=== PATIENT | male | born 1970 | race African-American/Black ===

== ENCOUNTER 2017-03-24 10:08 | Emergency (ER) | payer OTHER ==
[2017-03-24 10:13] VITALS: BP 122/87; BMI 25.7
--- NOTE | 2017-03-24 10:51 | DR.GENAD ---
HPI - PCP Primary Care Physician: [facility] - HPI Comment HPI Comment: KNEE SWOLLEN. HISTORY GOUT. - Complaint/Symptoms Chief Complaint Doctors Comments: LEFT KNEE PAIN FOR FEW MONTHS WORSE TODAY. NO INJURY REPORTED. Chief Complaint:: PATIENT STATED HE HAS BEEN HAVING LEFT KNEE PAIN FOR THE PAST SIX MONTHS THAT COMES AND GOES BUT TODAY AT WORK IT GOT WORSE. - Nurses notes reviewed Nurses Notes Review: Yes - Source History Provided: Patient - Mode of Arrival Mode of Arrival: Ambulatory - Timing Onset of Chief Complaint: 09/20/16 Came on: Suddenly - Duration Duration: Constant Duration: Hours - Severity Severity: Moderate PMH - PMH Past Medical History: No Past Surgical History: No - Family History History of Family Medical Conditions: No - Social History Does patient currently use any type of tobacco product: Yes Have you used tobacco products in the last 12 months: Yes Type of Tobacco Use: Cigarettes How many years tobacco product used: 20 Does any household member use tobacco: Yes Alcohol Use: None Do you use any recreational Drugs:: No Lives With: Family Lives Where: Home - infectious screening In the last 2 months have you had wt loss of >10#?: NO Have you had fever, night sweats or hemotysis?: No Have you traveled outside the country in the last 6 months?: No Isolation: Standard ROS - Review of Systems Constitutional: No Symptoms Reported Eyes: No Symptoms Reported ENTM: No Symptoms Reported Respiratoy: No Symptoms Reported Cardiovascular: No Symptoms Reported Gastrointestinal/Abdominal: No Symptoms Reported Genitourinary: No Symptoms Reported Neurological: No Symptoms Reported Musculoskeletal: Left, Knee Integumentary: Other (SWELLING LT KNEE.) Hematologic/Lymphatic: No Symptoms Reported Endocrine: No Symptoms Reported All Other Systems: Reviewed and Negative PE - Vital Signs Vitals: Temperature 98.9 F Pulse Rate 105 Respiratory Rate 16 Blood Pressure 122/87 O2 Sat by Pulse Oximetry 98 - General Limitations: No Limitations General Appearance: Alert - Head Head Exam: Normal Inspection - Eyes Eye exam: Normal Appearance - ENT ENT Exam: Normal External Ear Exam Mouth Exam: Normal Inspection Throat Exam: Normal Inspection - Neck Neck Exam: Trachea Midline - Chest Chest Inspection: Symmetric Chest Wall Rise - Respiratory Respiratory Exam: Normal Lung Sounds Bilat Respiratory Exam: Bilateral Clear to Auscultation, Bilateral Wheezing, Bilateral Rhonchi - Back Back Exam: Normal Inspection - Neurologic Neurological Exam: Alert, Oriented X3 - Psychiatric Psychiatric Exam: Normal Affect, Normal Mood - Skin Skin Exam: Erythema MDM - Differential Diagnosis Differential Diagnosis: LEFT KNEE FRACTURE, SPRAIN Course - Treatment Treatment: SEE ORDERS. SUSAN WRAP APPLIED IN ED. - Education/Counseling Education/Counseling: Patient, Education Educated On: Treatment, Diagnosis, Needs for Follow Up ROR - XRAY XRAY Interpreted by: Radiologist XRAY Findings: REPORT DISCUSS WITH PATIENT. - Diagnosis Discharge Problem: Sprain of left knee Qualifiers: Encounter type: initial encounter Involved ligament of knee: unspecified ligament Qualified Code(s): S83.92XA - Sprain of unspecified site of left knee, initial encounter - Discharge Plan Disposition: HOME, SELF-CARE Condition: Stable Prescriptions: Indomethacin 50 mg PO Q8H #30 capsule Mupirocin Calcium Cream [BACTROBAN CREAM 2%] 1 applic EXT BID #30 gm Tramadol HCl 50 mg PO Q8H #15 tablet - Follow ups/Referrals Follow ups/Referrals: NFD,None [Primary Care Provider] - 3 days - Instructions Instructions: Knee Pain, [id number], Rash, [id number] Additional Instructions: RETURN TO ED IF WORSE.
--- NOTE | 2017-03-24 13:05 | RAD ---
HISTORY: Left knee pain with remote injury approximately 4 months ago Study: Three views of the left may Comparison: None Findings: There is suboptimal positioning on the lateral and oblique images which may in part be due to patient discomfort. As visualized no definite evidence of acute displaced fracture or dislocation is identif ied. Mild narrowing of the medial compartment is noted. Periarticular soft tissue swelling and effusi on are noted. If symptoms persist recommend continued follow-up for further evaluation. IMPRESSION: 1. Degenerative changes with periarticular soft tissue swelling and effusion as noted above. Reported By:
== END 2017-03-24 12:21 | disposition home or self-care (01) ==
LOC: ER 10:16
DX: S83.92XA Sprain of unspecified site of left knee, initial encounter (principal); Y33.XXXA Other specified events, undetermined intent, initial encounter; Y92.9 Unspecified place or not applicable
CPT/HCPCS: 29530; 73560; 99281; 99282

== ENCOUNTER 2017-04-29 10:30 | Emergency (ER) | payer OTHER ==
[2017-04-29 10:41] VITALS: BP 163/96; BMI 27.8
[2017-04-29] MEDS ORDERED: TORADOL 60 MG VIAL IM ONE (11:17)
--- NOTE | 2017-04-29 11:17 | DR.GENAD ---
HPI - PCP Primary Care Physician: NFD - Complaint/Symptoms Chief Complaint:: PT C/O LT KNEE AND RT AND LT GREAT TOE. PT STATES HE HAS BEEN DIAGNOSES WITH GOUT. PT STATES HE TOOK HIS LAST DOSE OF INDOCIN2 DAYS AGO. PT STATES HIS PAIN STARTED 2 DAYS AGO. - Source History Provided: Patient - Mode of Arrival Mode of Arrival: Ambulatory - Timing Onset of Chief Complaint: 04/27/17 PMH - PMH Past Medical History: Yes Past Medical History: Arthritis, Dyslipidemia, Gout, Hypertension Past Medical History Comment: SLEEP APNEA Past Surgical History: Yes Past Surgical History Comment: COLONOSCOPY - Family History History of Family Medical Conditions: No - Social History Does patient currently use any type of tobacco product: Yes Have you used tobacco products in the last 12 months: Yes Type of Tobacco Use: Cigarettes Does any household member use tobacco: Yes Alcohol Use: Heavy Do you use any recreational Drugs:: No Lives With: Family Lives Where: Home - infectious screening In the last 2 months have you had wt loss of >10#?: NO Have you had fever, night sweats or hemotysis?: No Have you traveled outside the country in the last 6 months?: No Isolation: Standard ROS - Review of Systems Eyes: No Symptoms Reported ENTM: No Symptoms Reported Respiratoy: No Symptoms Reported Cardiovascular: No Symptoms Reported Gastrointestinal/Abdominal: No Symptoms Reported Genitourinary: No Symptoms Reported Neurological: No Symptoms Reported Musculoskeletal: Knee (left knee pain) Integumentary: No Symptoms Reported Hematologic/Lymphatic: No Symptoms Reported Endocrine: No Symptoms Reported Psychiatric: No Symptoms Reported All Other Systems: Reviewed and Negative PE - Vital Signs Vitals: Temperature 97.9 F Pulse Rate 89 Respiratory Rate 18 Blood Pressure 163/96 O2 Sat by Pulse Oximetry 99 - General General Appearance: Alert, In No Apparent Distress - Head Head Exam: Normal Inspection, Atraumatic - Eyes Eye exam: Normal Appearance, PERRL, EOMI - ENT ENT Exam: Normal Exam External Ear Exam: Normal External Inspection TM/Canal Exam: Bilateral Normal Nose Exam: Normal Nose Exam Mouth Exam: Normal Inspection Throat Exam: Normal Inspection - Neck Neck Exam: Normal Inspection, Full ROM - Chest Chest Inspection: Normal Inspection - Respiratory Respiratory Exam: Normal Lung Sounds Bilat Respiratory Exam: Bilateral Clear to Auscultation - Cardiovascular Cardiovascular Exam: Regular Rate, Normal Rhythm - Abdominal Exam Abdominal Exam: Normal Inspection, Normal Bowel Sounds Abdominal Tenderness: negative: RUQ, RLQ, LUQ, LLQ, Epigastrium, Suprapubic, Diffuse, Mild, Moderate, Severe, Other - Extremities Extremities Exam: Normal Inspection, Full ROM - Back Back Exam: Normal Inspection, Full ROM - Neurologic Neurological Exam: Alert, Oriented X3, CN II-XII Intact - Psychiatric Psychiatric Exam: Normal Affect, Normal Mood - Skin Skin Exam: Warm, Dry, Intact - Diagnosis Discharge Problem: Gout Qualifiers: Gout site: knee Gout etiology: unspecified cause Chronicity: chronic Laterality : left Qualified Code(s): 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
[2017-04-29] MEDS ORDERED: TORADOL 60 MG VIAL ONE (11:22)
== END 2017-04-29 11:30 | disposition home or self-care (01) ==
LOC: ER 10:49
DX: M1A.0620 Idiopathic chronic gout, left knee, without tophus (tophi) (principal)
CPT/HCPCS: 96372; 99282; J1885

== ENCOUNTER 2017-09-18 16:42 | Observation (INO) | payer OTHER ==
[2017-09-18] MEDS ORDERED: NS 1000 ML 1,000 ML ONE (16:52)
[2017-09-18 16:54] VITALS: BMI 25.7
--- NOTE | 2017-09-18 17:07 | DR.EXTPAIN ---
HPI - Time seen Time seen: 17:05 - PCP Primary Care Physician: Dr. Brand at [facility] in [place] - Complaint/Symptoms Chief Complaint:: about an hour ago pt stepped into a mud hole and fell and twisted right knee. Pt was unable to bear weight on right knee at all. Self Treatment fo Chief Complaint: none - Nurses notes reviewed Nurses Notes Review: Yes - Source History Provided: Patient - Mode of arrival Mode of Arrival: Ambulatory - Timing Onset of Chief Complaint: 09/18/17 PMH - PMH Past Medical History: Yes Past Medical History: Dyslipidemia, Hypertension Past Surgical History: No - Family History History of Family Medical Conditions: Yes Family Medical History: Diabetes Mellitus, Hypertension - Social History Does patient currently use any type of tobacco product: Yes Have you used tobacco products in the last 12 months: Yes Type of Tobacco Use: Cigarettes Does any household member use tobacco: No (6 pack beer daily) Alcohol Use: DAILY Do you use any recreational Drugs:: No Lives With: Alone Lives Where: Home - infectious screening In the last 2 months have you had wt loss of >10#?: NO Have you had fever, night sweats or hemotysis?: No Have you traveled outside the country in the last 6 months?: No ROS - Review of Systems Constitutional: No Symptoms Reported Eyes: No Symptoms Reported ENTM: No Symptoms Reported Respiratoy: No Symptoms Reported Cardiovascular: No Symptoms Reported Gastrointestinal/Abdominal: No Symptoms Reported Genitourinary: No Symptoms Reported Neurological: No Symptoms Reported Musculoskeletal: Knee (rt. ) Integumentary: No Symptoms Reported Hematologic/Lymphatic: No Symptoms Reported Endocrine: No Symptoms Reported Psychiatric: No Symptoms Reported All Other Systems: Reviewed and Negative PE - Vital Signs Vitals: Temperature 98.7 F Pulse Rate [Left Radial] 106 Pulse Rate 97 Respiratory Rate 22 Blood Pressure [Left Arm] 126/89 Blood Pressure 63/31 O2 Sat by Pulse Oximetry 100 - General Limitations: No Limitations General Appearance: Alert, In No Apparent Distress - Head Head Exam: Normal Inspection - Eyes Eye exam: Normal Appearance - ENT ENT Exam: Normal Exam - Neck Neck Exam: Normal Inspection - Chest Chest Inspection: Normal Inspection - Respiratory Respiratory Exam: Normal Lung Sounds Bilat - Cardiovascular Cardiovascular Exam: Regular Rate, Normal Rhythm, +S1, +S2 - Abdominal Exam Abdominal Exam: Normal Inspection, Normal Bowel Sounds, Soft - Upper Extremities Shoulder Exam: Normal Inspection Arm Exam: Normal Inspection Elbow Exam: Normal Inspection Hand Exam: Normal Inspection - Lower Extremities Hip/Pelvis Exam: Full ROM Upper Leg Exam: Normal Inspection, Full ROM Knee Exam: Tenderness (rt. knee), Swelling (rt. knee) - Back Back Exam: Normal Inspection - Neurological Neurological Exam: Alert, Oriented X3, CN II-XII Intact - Psychiatric Psychiatric Exam: Normal Affect, Normal Mood - Skin Skin Exam: Warm, Dry, Intact, Normal Color ROR - XRAY XRAY Interpreted by: Self (communited fracture of proximal rt. tibia) - Diagnosis Discharge Problem: Fracture, tibia and fibula, proximal - Discharge Plan Disposition: ADMITTED INPATIENT Condition: Stable - Follow ups/Referrals Follow ups/Referrals: NFD,None [Primary Care Provider] - 3 days - Instructions Instructions: Tibial Fracture, Adult, [id number]
--- NOTE | 2017-09-18 17:23 | RAD ---
Examination: Right knee, three views History: Knee pain Findings: There is an acute, closed, intra-articular and comminuted fracture involving the lateral ti bial plateau with minimal depression and moderate lateral displacement of major fracture fragments. T he distal femur is intact. A fracture of the adjacent fibula is probable. There is a large fluid dist ention of the synovial cavity. Impression: Intra-articular comminuted fracture proximal tibia with associated hemarthrosis. Probable associated proximal fibular fracture. No marked joint space asymmetry is identified. Reported By:
[2017-09-18] MEDS ORDERED: NS 1000 ML 1,000 ML IV ONE (18:57)
[2017-09-18] MEDS ORDERED: DILAUDID INJ IVP PRN (18:58)
[2017-09-18] MEDS ORDERED: ZOFRAN INJ 4 MG VIAL IVP SCH (19:00)
[2017-09-18] MEDS ORDERED: ZOFRAN INJ 4 MG VIAL IVP PRN (19:14)
[2017-09-18 19:48] LABS: BASOPHILS # (AUTO) 0.1 X10^3/uL (0.0-0.1); BASOPHILS % (AUTO) 1.4 % (0.2-1.0); EOSINOPHILS % (AUTO) 0.4 % (0.9-2.9); HEMATOCRIT 36.4 % (42.0-54.0); HEMOGLOBIN 12.5 g/dL (13.5-18.0); LYMPHOCYTES # (AUTO) 0.6 X10^3/uL (1.3-2.9); MEAN CORPUSCULAR HEMOGLOBIN 30.6 pg (27.0-34.0); MEAN CORPUSCULAR HGB CONC 34.2 g/dL (33.0-35.0); MEAN CORPUSCULAR VOLUME 89.4 fL (80.0-100.0); MEAN PLATELET VOLUME 8.2 fL (7.4-11.0); MONOCYTES # (AUTO) 0.3 x10^3/uL (0.3-0.8); NEUTROPHILS # (AUTO) 4.4 x10^3/uL (2.2-4.8); NEUTROPHILS % (AUTO) 81.2 % (42.0-75.0); PLATELET COUNT 116 X10^3/uL (150.0-450.0); RED BLOOD COUNT 4.08 X10^6/uL (4.7-6.0); WHITE BLOOD COUNT 5.5 X10^3/uL (3.6-10.0)
[2017-09-18 19:54] LABS: ALANINE AMINOTRANSFERASE 45 Units/L (12-78); ALBUMIN 3.6 g/dL (3.4-5.0); ALKALINE PHOSPHATASE 74 Units/L (46-116); ASPARTATE AMINO TRANSFERASE 141 Units/L (15-37); BLOOD UREA NITROGEN 5 mg/dL (7-18); CALCIUM 7.6 mg/dL (8.5-10.1); CARBON DIOXIDE 28.5 mmol/L (21-32); CHLORIDE 104 mmol/L (98-107); CREATININE 0.68 mg/dL (0.70-1.30); SODIUM 142 mmol/L (136-145); TOTAL PROTEIN 7.8 g/dL (6.4-8.2); eGFR BLACK RACES > 60 (>60); eGFR NON BLACK RACES > 60 (>60)
[2017-09-18] MEDS: NS 1000 ML 1,000 ML IV SCH (20:05)
[2017-09-18] MEDS: NICOTINE PATCH TD SCH (21:45)
[2017-09-18] MEDS: DILAUDID INJ IVP PRN (23:32)
[2017-09-19] MEDS: NS 1000 ML 1,000 ML IV SCH ×3 (01:58→23:11)
[2017-09-19] MEDS: DILAUDID INJ IVP PRN ×4 (04:00→15:20)
[2017-09-19 06:13] LABS: BASOPHILS % (AUTO) 0.6 % (0.2-1.0); EOSINOPHILS % (AUTO) 0.2 % (0.9-2.9); HEMATOCRIT 33.9 % (42.0-54.0); HEMOGLOBIN 11.4 g/dL (13.5-18.0); LYMPHOCYTES # (AUTO) 0.5 X10^3/uL (1.3-2.9); LYMPHOCYTES % (AUTO) 6.4 % (21.0-51.0); MEAN CORPUSCULAR HEMOGLOBIN 30.2 pg (27.0-34.0); MEAN CORPUSCULAR HGB CONC 33.5 g/dL (33.0-35.0); MEAN CORPUSCULAR VOLUME 90.3 fL (80.0-100.0); MEAN PLATELET VOLUME 8.7 fL (7.4-11.0); MONOCYTES # (AUTO) 0.5 x10^3/uL (0.3-0.8); MONOCYTES % (AUTO) 6.2 % (0.0-13.0); NEUTROPHILS # (AUTO) 6.6 x10^3/uL (2.2-4.8); NEUTROPHILS % (AUTO) 86.6 % (42.0-75.0); PLATELET COUNT 109 X10^3/uL (150.0-450.0); RED BLOOD COUNT 3.76 X10^6/uL (4.7-6.0); RED CELL DISTRIBUTION WIDTH 14.9 % (11.6-16.5); WHITE BLOOD COUNT 7.6 X10^3/uL (3.6-10.0)
[2017-09-19 06:33] LABS: ALANINE AMINOTRANSFERASE 40 Units/L (12-78); ALBUMIN 3.5 g/dL (3.4-5.0); ALKALINE PHOSPHATASE 66 Units/L (46-116); ASPARTATE AMINO TRANSFERASE 91 Units/L (15-37); BLOOD UREA NITROGEN 4 mg/dL (7-18); CALCIUM 7.7 mg/dL (8.5-10.1); CARBON DIOXIDE 26.9 mmol/L (21-32); CHLORIDE 104 mmol/L (98-107); COR NA(FOR HYPERGLY) 144 mmol/L (136-145); CREATININE 0.72 mg/dL (0.70-1.30); SODIUM 143 mmol/L (136-145); TOTAL PROTEIN 7.7 g/dL (6.4-8.2); eGFR BLACK RACES > 60 (>60); eGFR NON BLACK RACES > 60 (>60)
--- NOTE | 2017-09-19 07:27 | RAD ---
HISTORY: Preop ORIF right lower extremity Study: Chest AP portable Comparison: None Findings: The heart is within normal limits in size. The lonnie are normal. The lungs are well inflated and free of acute infiltrates. The bony thorax is unremarkable. IMPRESSION: Lungs clear Reported By:
[2017-09-19] MEDS: NICOTINE PATCH TD SCH (08:00)
[2017-09-19] MEDS ORDERED: LR 1000 ML IV 1,000 ML IV ONE (08:46)
[2017-09-19] MEDS ORDERED: HYDROGEN PEROXIDE 3% ONE (09:32)
[2017-09-19] MEDS ORDERED: MARCAINE 0.25% INJ ONE (09:32)
[2017-09-19] MEDS ORDERED: BACTROBAN OINT ONE (09:32)
[2017-09-19] MEDS ORDERED: DILAUDID INJ ONE (09:49)
[2017-09-19] MEDS ORDERED: FENTANYL INJ 250 mcg ONE (09:49)
[2017-09-19] MEDS ORDERED: ANCEF 1 GM IV PREMIX* 1 GM/50 ML BAG IV ONE (09:53)
[2017-09-19] MEDS ORDERED: NS IRRIGATION 1000 ML 1,000 ML with BACITRACIN VIAL 50,000 UNT IR ONE ×2 (10:29)
[2017-09-19] MEDS ORDERED: PHENERGAN INJ 25 MG IVP PRN (12:53)
[2017-09-19] MEDS ORDERED: ZOFRAN INJ 4 MG VIAL IVP PRN (12:53)
[2017-09-19] MEDS ORDERED: DILAUDID INJ IVP PRN (12:53)
[2017-09-19] MEDS ORDERED: BENADRYL INJ 50 MG VIAL IVP PRN (12:53)
[2017-09-19] MEDS ORDERED: REGLAN INJ 10 MG VIAL IVP PRN (12:53)
[2017-09-19] MEDS ORDERED: ROBINUL ONE (14:53)
[2017-09-19] MEDS ORDERED: VERSED ONE (14:53)
[2017-09-19] MEDS ORDERED: NEOSTIGMINE INJ ONE (14:53)
[2017-09-19] MEDS ORDERED: QUELICIN (OR ANECTINE) ONE (14:53)
[2017-09-19] MEDS ORDERED: DIPRIVAN VIAL ONE (14:53)
[2017-09-19] MEDS ORDERED: TORADOL 30 MG VIAL ONE (14:53)
[2017-09-19] MEDS ORDERED: NORCURON INJ 10 MG VIAL ONE (14:53)
[2017-09-19] MEDS ORDERED: XYLOCAINE 2 % (PLAIN) ONE (14:53)
[2017-09-19] MEDS ORDERED: SUPRANE IN ONE (14:53)
[2017-09-19] MEDS ORDERED: ZOFRAN INJ 4 MG VIAL ONE (14:53)
[2017-09-19] MEDS ORDERED: NORMODYNE INJ 100 MG VIAL ONE (14:53)
--- NOTE | 2017-09-19 14:53 | RAD ---
HISTORY: Postop ORIF right tibia and Study: Two-view right knee Comparison: 09/18/2017. Technique: AP and cross-table lateral views of the right knee are provided. Findings: A laterally placed metallic plate is seen with multiple screws extending into the right proximal tibi a. The depressed fracture of the right lateral tibial plateau has been reduced. The metallic hardware appears intact. A nondisplaced fracture of the right proximal fibula is again seen. There is a small amount pneumo arthrosis present. The distal femur and patella appear intact. A surgical drain is pre sent medially. IMPRESSION: As above. Reported By:
--- NOTE | 2017-09-19 17:45 | DR.H&P ---
H&P - History & Physical for Day of: H&P Date: 09/18/17 - Chief Complaint Chief Complaint: fall, right leg pain - Allergies Allergies/Adverse Reactions: Allergies Allergy/AdvReac Type Severity Reaction Status Date / Time No Known Drug Allergies Allergy Verified 03/24/17 10:09 - History of Present Illness History of Present Illness: 46 BLACK MALE, ER ADMISSION with co fal, about an hour ago pt stepped into a mud hole and fell and twisted right knee. Pt was unable to bear weight on right knee at all. Pt xray revealed right tib/fib fracture. pt has pmh of HTN and daily etoh use. Pt denies taking any prescription medication, [facility] Pt admitted for pain control and ortho consult - Past Medical History Past Medical History: Dyslipidemia, Hypertension - Past Surgical History Surgical History: Other - Family History Family Medical History: Diabetes Mellitus, Hypertension - Social History Does patient currently use any type of tobacco product: Yes Have you used tobacco products in the last 12 months: Yes Type of Tobacco Use: Cigarettes Does any household member use tobacco: No (6 pack beer daily) Alcohol Use: DAILY Drug Use: None - Medications Home Medications: No Known Home Medications 1 : XX PRN PRN 09/18/17 [History Confirmed 09/18/17] - Review of Systems Constitutional: No Symptoms Reported Eyes: No Symptoms Reported ENT: No Symptoms Reported Respiratory: No Symptoms Reported Cardiovascular: No Symptoms Reported Gastrointestinal: No Symptoms Reported Genitourinary: No Symptoms Reported Musculoskeletal: Leg Pain Skin: No Symptoms Reported Neurological: No Symptoms Reported - Physical Exam Vital Signs: Temperature 98.3 F Pulse Rate [Left Brachial] 80 Pulse Rate [Left Radial] 126 Pulse Rate 90 Respiratory Rate 18 Blood Pressure [Left Arm] 142/96 Blood Pressure 113/83 O2 Sat by Pulse Oximetry 93 Oriented: Normal Eyes: Normal Ear: Normal Nose: Normal Throat: Normal Respiratory: RLL Diminished, LLL Diminished Cardiovascular: Normal : Normal Auscultation: Bowel Sounds: Normal Palpation: Normal Tenderness: Normal Skin: Normal Musculoskeletal: Right, Knee, Leg, Ankle, Back:Thoracic, Back:Lumbar, Swelling, Tender, Instability Psychiatric: Normal Speech Pattern: Clear, Appropriate - Assessment/Plan (1) Fracture, tibia and fibula, proximal Status: Acute Plan: ADMIT, ORTHO CONSULT, PAIN CONTROL. BP MONITORING. CXR, EKG PREOPERATIVE (2) Hypertension Status: Acute (3) Sprain of left knee Qualifiers: Encounter type: initial encounter Involved ligament of knee: unspecified ligament Qualified Code(s): S83.92XA - Sprain of unspecified site of left knee , initial encounter Status: Acute
[2017-09-19] MEDS: PERCOCET TAB 5/325 MG PO PRN ×2 (19:03→23:08)
[2017-09-19] MEDS: COLACE CAP 100 MG PO SCH (23:12)
[2017-09-19] MEDS: MILK OF MAGNESIA PO SCH (23:13)
[2017-09-20] MEDS: PERCOCET TAB 5/325 MG PO PRN ×4 (03:11→20:10)
[2017-09-20 06:06] LABS: BASOPHILS # (AUTO) 0.1 X10^3/uL (0.0-0.1); BASOPHILS % (AUTO) 0.9 % (0.2-1.0); EOSINOPHILS % (AUTO) 0.1 % (0.9-2.9); HEMATOCRIT 29.8 % (42.0-54.0); LYMPHOCYTES # (AUTO) 0.5 X10^3/uL (1.3-2.9); LYMPHOCYTES % (AUTO) 7.5 % (21.0-51.0); MEAN CORPUSCULAR HEMOGLOBIN 30.8 pg (27.0-34.0); MEAN CORPUSCULAR HGB CONC 33.7 g/dL (33.0-35.0); MEAN CORPUSCULAR VOLUME 91.5 fL (80.0-100.0); MEAN PLATELET VOLUME 9.5 fL (7.4-11.0); MONOCYTES # (AUTO) 0.5 x10^3/uL (0.3-0.8); MONOCYTES % (AUTO) 7.5 % (0.0-13.0); NEUTROPHILS # (AUTO) 5.1 x10^3/uL (2.2-4.8); PLATELET COUNT 92 X10^3/uL (150.0-450.0); RED BLOOD COUNT 3.26 X10^6/uL (4.7-6.0); RED CELL DISTRIBUTION WIDTH 14.6 % (11.6-16.5); WHITE BLOOD COUNT 6.1 X10^3/uL (3.6-10.0)
[2017-09-20 06:18] LABS: BLOOD UREA NITROGEN 7 mg/dL (7-18); CALCIUM 7.9 mg/dL (8.5-10.1); CARBON DIOXIDE 29.3 mmol/L (21-32); CHLORIDE 104 mmol/L (98-107); CREATININE 0.73 mg/dL (0.70-1.30); SODIUM 141 mmol/L (136-145); eGFR BLACK RACES > 60 (>60); eGFR NON BLACK RACES > 60 (>60)
[2017-09-20] MEDS: NICOTINE PATCH TD SCH ×2 (07:20→11:10)
[2017-09-20] MEDS: MILK OF MAGNESIA PO SCH ×3 (07:20→20:10)
--- NOTE | 2017-09-20 13:43 | PCM.PROG ---
Progress Note - Progress Note for Day of Date: 09/19/17 - Subjective Subjective: 46 bm admitted with right lower extremity tib/fib fracture. pt NPO for surgical repair in OR this AM, pt co rle pain - Past Medical Family Social History Past Med/Fam/Surg Hx: No changes since H&P Allergies: Allergies No Known Drug Allergies Allergy (Verified 03/24/17 10:09) - Review of Systems ROS: No change since H&P - Vital Signs and I&O's Vital Signs: Temperature 101.4 F Pulse Rate [Left Brachial] 116 Pulse Rate [Left Radial] 126 Pulse Rate 90 Respiratory Rate 20 Blood Pressure [Left Arm] 144/94 Blood Pressure 113/83 O2 Sat by Pulse Oximetry 96 Intake and Output: Intake & Output 09/18/17 09/19/17 09/20/17 09/21/17 11:59 11:59 11:59 11:59 Intake Total 1440 3048 Output Total 1200 2380 Balance 240 668 - Physical Exam Oriented: Normal Eyes: Normal Ear: Normal Nose: Normal Throat: Normal Respiratory: Normal Cardiovascular: Normal : Normal Auscultation: Bowel Sounds: Normal Tenderness: Normal Skin: Normal Musculoskeletal: Right, Knee, Leg, Ankle, Back:Thoracic, Back:Lumbar, Swelling, Tender, Instability Psychiatric: Normal Mood Description: Calm Speech Pattern: Clear, Appropriate - Laboratory and Diagnostics Result Diagrams: 09/20/17 04:10 09/20/17 04:10 Labs: Laboratory WBC 6.1 X10^3/uL (3.6-10.0) 09/20/17 04:10 RBC 3.26 X10^6/uL (4.7-6.0) L 09/20/17 04:10 Hgb 10.0 g/dL (13.5-18.0) L 09/20/17 04:10 Hct 29.8 % (42.0-54.0) L 09/20/17 04:10 MCV 91.5 fL (80.0-100.0) 09/20/17 04:10 MCH 30.8 pg (27.0-34.0) 09/20/17 04:10 MCHC 33.7 g/dL (33.0-35.0) 09/20/17 04:10 RDW 14.6 % (11.6-16.5) 09/20/17 04:10 Plt Count 92 X10^3/uL (150.0-450.0) L 09/20/17 04:10 MPV 9.5 fL (7.4-11.0) 09/20/17 04:10 Neut % (Auto) 84.0 % (42.0-75.0) H 09/20/17 04:10 Lymph % (Auto) 7.5 % (21.0-51.0) L 09/20/17 04:10 [place] % (Auto) 7.5 % (0.0-13.0) 09/20/17 04:10 Eos % (Auto) 0.1 % (0.9-2.9) L 09/20/17 04:10 Baso % (Auto) 0.9 % (0.2-1.0) 09/20/17 04:10 Neut # (Auto) 5.1 x10^3/uL (2.2-4.8) H 09/20/17 04:10 Lymph # (Auto) 0.5 X10^3/uL (1.3-2.9) L 09/20/17 04:10 [place] # (Auto) 0.5 x10^3/uL (0.3-0.8) 09/20/17 04:10 Eos # (Auto) 0.0 x10^3/uL (0.0-0.2) 09/20/17 04:10 Baso # (Auto) 0.1 X10^3/uL (0.0-0.1) 09/20/17 04:10 Absolute Nucleated RBC 0.1 /100WBC 09/20/17 04:10 Sodium 141 mmol/L (136-145) 09/20/17 04:10 Corrected Sodium TNP 09/20/17 04:10 Potassium 3.5 mmol/L (3.5-5.1) 09/20/17 04:10 Chloride 104 mmol/L (98-107) 09/20/17 04:10 Carbon Dioxide 29.3 mmol/L (21-32) 09/20/17 04:10 BUN 7 mg/dL (7-18) 09/20/17 04:10 Creatinine 0.73 mg/dL (0.70-1.30) 09/20/17 04:10 Est GFR (MDRD) Af Amer > 60 (>60) 09/20/17 04:10 Est GFR (MDRD) Non-Af > 60 (>60) 09/20/17 04:10 Glucose 97 mg/dL (65-99) 09/20/17 04:10 Calcium 7.9 mg/dL (8.5-10.1) L 09/20/17 04:10 Corrected Calcium TNP 09/19/17 04:28 Total Bilirubin 1.00 mg/dL (0.2-1.0) 09/19/17 04:28 AST 91 Units/L (15-37) H 09/19/17 04:28 ALT 40 Units/L (12-78) 09/19/17 04:28 Alkaline Phosphatase 66 Units/L (46-116) 09/19/17 04:28 Total Protein 7.7 g/dL (6.4-8.2) 09/19/17 04:28 Albumin 3.5 g/dL (3.4-5.0) 09/19/17 04:28 Globulin 4.2 g/dL (2.5-4.5) 09/19/17 04:28 Albumin/Globulin Ratio 0.8 Ratio (1.1-2.1) L 09/19/17 04:28 - Plan (1) Fracture, tibia and fibula, proximal Status: Acute Plan: ORTHO CONSULT, PAIN CONTROL. BP MONITORING, NPO FOR ORTHO SURGERY THIS AM. CXR, EKG PREOPERATIVE (2) Hypertension Status: Acute (3) Sprain of left knee Status: Acute Qualifiers: Encounter type: initial encounter Involved ligament of knee: unspecified ligament Qualified Code(s): S83.92XA - Sprain of unspecified site of left knee , initial encounter
--- NOTE | 2017-09-20 13:49 | PCM.PROG ---
Progress Note - Progress Note for Day of Date: 09/20/17 - Subjective Subjective: 46 bm admitted with right lower extremity tib/fib fracture. Pt is one day s/p RLE FRACTURE REPAIR PER DR EDWARDS. PT HAS DRAIN INTACT. PT CO RLE "BURNING" PT HAS NOT BEEN UP WITH PHYSICAL THERAPY. - Past Medical Family Social History Past Med/Fam/Surg Hx: No changes since H&P Allergies: Allergies No Known Drug Allergies Allergy (Verified 03/24/17 10:09) - Review of Systems ROS: No change since H&P - Vital Signs and I&O's Vital Signs: Temperature 101.4 F Pulse Rate [Left Brachial] 116 Pulse Rate [Left Radial] 126 Pulse Rate 90 Respiratory Rate 20 Blood Pressure [Left Arm] 144/94 Blood Pressure 113/83 O2 Sat by Pulse Oximetry 96 Intake and Output: Intake & Output 09/18/17 09/19/17 09/20/17 09/21/17 11:59 11:59 11:59 11:59 Intake Total 1440 3048 Output Total 1200 2380 Balance 240 668 - Physical Exam Oriented: Normal Eyes: Normal Ear: Normal Nose: Normal Throat: Normal Respiratory: Normal Cardiovascular: Normal : Normal Auscultation: Bowel Sounds: Normal Tenderness: Normal Skin: Normal Musculoskeletal: Right, Knee, Leg, Ankle, Back:Thoracic, Back:Lumbar, Swelling, Tender, Instability Psychiatric: Normal Mood Description: Calm Speech Pattern: Clear, Appropriate - Laboratory and Diagnostics Result Diagrams: 09/20/17 04:10 09/20/17 04:10 Labs: Laboratory WBC 6.1 X10^3/uL (3.6-10.0) 09/20/17 04:10 RBC 3.26 X10^6/uL (4.7-6.0) L 09/20/17 04:10 Hgb 10.0 g/dL (13.5-18.0) L 09/20/17 04:10 Hct 29.8 % (42.0-54.0) L 09/20/17 04:10 MCV 91.5 fL (80.0-100.0) 09/20/17 04:10 MCH 30.8 pg (27.0-34.0) 09/20/17 04:10 MCHC 33.7 g/dL (33.0-35.0) 09/20/17 04:10 RDW 14.6 % (11.6-16.5) 09/20/17 04:10 Plt Count 92 X10^3/uL (150.0-450.0) L 09/20/17 04:10 MPV 9.5 fL (7.4-11.0) 09/20/17 04:10 Neut % (Auto) 84.0 % (42.0-75.0) H 09/20/17 04:10 Lymph % (Auto) 7.5 % (21.0-51.0) L 09/20/17 04:10 [place] % (Auto) 7.5 % (0.0-13.0) 09/20/17 04:10 Eos % (Auto) 0.1 % (0.9-2.9) L 09/20/17 04:10 Baso % (Auto) 0.9 % (0.2-1.0) 09/20/17 04:10 Neut # (Auto) 5.1 x10^3/uL (2.2-4.8) H 09/20/17 04:10 Lymph # (Auto) 0.5 X10^3/uL (1.3-2.9) L 09/20/17 04:10 [place] # (Auto) 0.5 x10^3/uL (0.3-0.8) 09/20/17 04:10 Eos # (Auto) 0.0 x10^3/uL (0.0-0.2) 09/20/17 04:10 Baso # (Auto) 0.1 X10^3/uL (0.0-0.1) 09/20/17 04:10 Absolute Nucleated RBC 0.1 /100WBC 09/20/17 04:10 Sodium 141 mmol/L (136-145) 09/20/17 04:10 Corrected Sodium TNP 09/20/17 04:10 Potassium 3.5 mmol/L (3.5-5.1) 09/20/17 04:10 Chloride 104 mmol/L (98-107) 09/20/17 04:10 Carbon Dioxide 29.3 mmol/L (21-32) 09/20/17 04:10 BUN 7 mg/dL (7-18) 09/20/17 04:10 Creatinine 0.73 mg/dL (0.70-1.30) 09/20/17 04:10 Est GFR (MDRD) Af Amer > 60 (>60) 09/20/17 04:10 Est GFR (MDRD) Non-Af > 60 (>60) 09/20/17 04:10 Glucose 97 mg/dL (65-99) 09/20/17 04:10 Calcium 7.9 mg/dL (8.5-10.1) L 09/20/17 04:10 Corrected Calcium TNP 09/19/17 04:28 Total Bilirubin 1.00 mg/dL (0.2-1.0) 09/19/17 04:28 AST 91 Units/L (15-37) H 09/19/17 04:28 ALT 40 Units/L (12-78) 09/19/17 04:28 Alkaline Phosphatase 66 Units/L (46-116) 09/19/17 04:28 Total Protein 7.7 g/dL (6.4-8.2) 09/19/17 04:28 Albumin 3.5 g/dL (3.4-5.0) 09/19/17 04:28 Globulin 4.2 g/dL (2.5-4.5) 09/19/17 04:28 Albumin/Globulin Ratio 0.8 Ratio (1.1-2.1) L 09/19/17 04:28 - Plan (1) Fracture, tibia and fibula, proximal Status: Acute Plan: ORTHO CONSULT, PAIN CONTROL. BP MONITORING, FOLLOWING POST OPERATIVE PAIN AND PT PER DR EDWARDS (2) Hypertension Status: Acute (3) Sprain of left knee Status: Acute Qualifiers: Encounter type: initial encounter Involved ligament of knee: unspecified ligament Qualified Code(s): S83.92XA - Sprain of unspecified site of left knee , initial encounter
[2017-09-20] MEDS: TYLENOL 325 MG TAB PO PRN (17:14)
[2017-09-20] MEDS: NS 1000 ML 1,000 ML IV SCH (19:47)
[2017-09-20] MEDS: COLACE CAP 100 MG PO SCH (20:10)
[2017-09-20] MEDS ORDERED: AMBIEN PO PRN (20:11)
[2017-09-21] MEDS: PERCOCET TAB 5/325 MG PO PRN (01:31)
[2017-09-21] MEDS: TYLENOL 325 MG TAB PO PRN (01:31)
[2017-09-21 06:05] LABS: BASOPHILS % (AUTO) 0.7 % (0.2-1.0); EOSINOPHILS % (AUTO) 0.5 % (0.9-2.9); HEMATOCRIT 26.8 % (42.0-54.0); HEMOGLOBIN 9.1 g/dL (13.5-18.0); LYMPHOCYTES # (AUTO) 0.7 X10^3/uL (1.3-2.9); LYMPHOCYTES % (AUTO) 10.2 % (21.0-51.0); MEAN CORPUSCULAR HEMOGLOBIN 30.9 pg (27.0-34.0); MEAN CORPUSCULAR HGB CONC 33.8 g/dL (33.0-35.0); MEAN CORPUSCULAR VOLUME 91.4 fL (80.0-100.0); MEAN PLATELET VOLUME 9.2 fL (7.4-11.0); MONOCYTES # (AUTO) 0.6 x10^3/uL (0.3-0.8); MONOCYTES % (AUTO) 8.6 % (0.0-13.0); NEUTROPHILS # (AUTO) 5.5 x10^3/uL (2.2-4.8); PLATELET COUNT 106 X10^3/uL (150.0-450.0); RED BLOOD COUNT 2.93 X10^6/uL (4.7-6.0); RED CELL DISTRIBUTION WIDTH 13.8 % (11.6-16.5); WHITE BLOOD COUNT 6.9 X10^3/uL (3.6-10.0)
[2017-09-21] MEDS: NS 1000 ML 1,000 ML IV SCH (06:14)
[2017-09-21 06:35] LABS: BLOOD UREA NITROGEN 5 mg/dL (7-18); CALCIUM 7.9 mg/dL (8.5-10.1); CARBON DIOXIDE 30.3 mmol/L (21-32); CHLORIDE 100 mmol/L (98-107); CREATININE 0.81 mg/dL (0.70-1.30); SODIUM 139 mmol/L (136-145); eGFR BLACK RACES > 60 (>60); eGFR NON BLACK RACES > 60 (>60)
[2017-09-21] MEDS ORDERED: K-LYTE EFFERVESCENT PO PRN (06:39)
[2017-09-21] MEDS ORDERED: MAGNESIUM SULFATE 1 GM/100 mL PREMIX 1 GM/100 ML BAG IV PRN (06:39)
[2017-09-21] MEDS ORDERED: POTASSIUM CHL 40 MEQ/NS 0.45% 500 ML IV PRN (06:39)
[2017-09-21] MEDS ORDERED: K-RIDER 10 MEQ/NS 100 ML 10 MEQ/100 ML BAG IV PRN (06:39)
[2017-09-21] MEDS ORDERED: POTASSIUM CHLORIDE LIQ 20 MEQ UDC PO PRN (06:39)
[2017-09-21] MEDS ORDERED: POTASSIUM CHL 60 MEQ/NS 0.45% 500 ML IV PRN (06:39)
[2017-09-21] MEDS: MILK OF MAGNESIA PO SCH (08:38)
[2017-09-21] MEDS: NICOTINE PATCH TD SCH (08:38)
[2017-09-21] MEDS ORDERED: LEVAQUIN PREMIX IV 750 MG 750 MG/150 ML BAG IV SCH (10:00)
--- NOTE | 2017-09-21 10:23 | RAD ---
Examination: Chest x-ray. Clinical history: Postop fever. Technique: A single portable AP view of the chest was obtained. Comparison: 09/19/2017. Findings: The chest is mildly rotated. The cardiac and mediastinal contours are within normal limits. No pneumothorax or pleural effusion is noted. The lungs are clear. Degenerative changes are noted in the spine. No acute osseous abnormality is noted. Impression: 1. No acute disease. Reported By:
[2017-09-21 12:06] VITALS: BP 147/90
[2017-09-21 12:22] LABS: BILIRUBIN,URINE NEGATIVE (NEGATIVE); BLOOD/HEMOGLOBIN,URINE NEGATIVE (NEGATIVE); GLUCOSE, URINE NEGATIVE (NEGATIVE); KETONES,URINE NEGATIVE (NEGATIVE); LEUKOCYTE ESTERASE ,URINE NEGATIVE (NEGATIVE); NITRITES,URINE NEGATIVE (NEGATIVE); PROTEIN,URINE 1+ (NEGATIVE); UROBILINOGEN,URINE 2+ (NORMAL)
[2017-09-21 12:34] LABS: APPEARANCE,URINE CLEAR (CLEAR); COLOR,URINE YELLOW (YELLOW)
[2017-09-21 12:36] LABS: BACTERIA,URINE NEGATIVE /HPF (NEGATIVE); RBC,URINE NONE SEEN /HPF (NONE SEEN); SQUAMOUS EPITHELIAL CELL,UR RARE /HPF (NEGATIVE)
--- NOTE | 2017-09-21 13:33 | PCM.PROG ---
Progress Note - Progress Note for Day of Date: 09/21/17 - Subjective Subjective: 46 bm admitted with right lower extremity tib/fib fracture. Pt is one day s/p RLE FRACTURE REPAIR PER DR EDWARDS. PT HAD DRAINAGE TUBE REMOVED YESTERDAY AFTERNOON. PT SPIKED FEVER YESTERDAY, BLOOD CULTURES ORDERED. PT CONTINUES TO CO RLE PAIN THIS AM. DENIES ANY SOB OR N/V. UA, CXR AND IV LEVAQUIN ADDED THIS AM. WILL CONTINUE PAIN CONTROL AND PT PER ORTHO - Past Medical Family Social History Past Med/Fam/Surg Hx: No changes since H&P Allergies: Allergies No Known Drug Allergies Allergy (Verified 03/24/17 10:09) - Review of Systems ROS: No change since H&P - Vital Signs and I&O's Vital Signs: Temperature 100.4 F Pulse Rate [Right Brachial] 119 Pulse Rate [Left Brachial] 119 Pulse Rate [Left Radial] 126 Pulse Rate 90 Respiratory Rate 20 Blood Pressure [Right Arm] 133/89 Blood Pressure [Left Arm] 147/90 Blood Pressure 113/83 O2 Sat by Pulse Oximetry 98 Intake and Output: Intake & Output 09/19/17 09/20/17 09/21/17 09/22/17 11:59 11:59 11:59 11:59 Intake Total 1440 3048 3336 Output Total 1200 2380 2375 Balance 240 668 961 - Physical Exam Oriented: Normal Eyes: Normal Ear: Normal Nose: Normal Throat: Normal Respiratory: Diminished (MILD DIMINISHED LUNG BASES) Cardiovascular: Normal : Normal Auscultation: Bowel Sounds: Normal Tenderness: Normal Skin: Normal Musculoskeletal: Right, Knee, Leg, Ankle, Back:Thoracic, Back:Lumbar, Swelling, Tender, Instability Psychiatric: Normal Mood Description: Calm Speech Pattern: Clear, Appropriate - Laboratory and Diagnostics Result Diagrams: 09/21/17 04:15 09/21/17 04:15 Labs: Laboratory WBC 6.9 X10^3/uL (3.6-10.0) 09/21/17 04:15 RBC 2.93 X10^6/uL (4.7-6.0) L 09/21/17 04:15 Hgb 9.1 g/dL (13.5-18.0) L 09/21/17 04:15 Hct 26.8 % (42.0-54.0) L 09/21/17 04:15 MCV 91.4 fL (80.0-100.0) 09/21/17 04:15 MCH 30.9 pg (27.0-34.0) 09/21/17 04:15 MCHC 33.8 g/dL (33.0-35.0) 09/21/17 04:15 RDW 13.8 % (11.6-16.5) 09/21/17 04:15 Plt Count 106 X10^3/uL (150.0-450.0) L 09/21/17 04:15 MPV 9.2 fL (7.4-11.0) 09/21/17 04:15 Neut % (Auto) 80.0 % (42.0-75.0) H 09/21/17 04:15 Lymph % (Auto) 10.2 % (21.0-51.0) L 09/21/17 04:15 [place] % (Auto) 8.6 % (0.0-13.0) 09/21/17 04:15 Eos % (Auto) 0.5 % (0.9-2.9) L 09/21/17 04:15 Baso % (Auto) 0.7 % (0.2-1.0) 09/21/17 04:15 Neut # (Auto) 5.5 x10^3/uL (2.2-4.8) H 09/21/17 04:15 Lymph # (Auto) 0.7 X10^3/uL (1.3-2.9) L 09/21/17 04:15 [place] # (Auto) 0.6 x10^3/uL (0.3-0.8) 09/21/17 04:15 Eos # (Auto) 0.0 x10^3/uL (0.0-0.2) 09/21/17 04:15 Baso # (Auto) 0.0 X10^3/uL (0.0-0.1) 09/21/17 04:15 Absolute Nucleated RBC 0.0 /100WBC 09/21/17 04:15 Sodium 139 mmol/L (136-145) 09/21/17 04:15 Corrected Sodium TNP 09/21/17 04:15 Potassium 3.0 mmol/L (3.5-5.1) L* 09/21/17 04:15 Chloride 100 mmol/L (98-107) 09/21/17 04:15 Carbon Dioxide 30.3 mmol/L (21-32) 09/21/17 04:15 BUN 5 mg/dL (7-18) L 09/21/17 04:15 Creatinine 0.81 mg/dL (0.70-1.30) 09/21/17 04:15 Est GFR (MDRD) Af Amer > 60 (>60) 09/21/17 04:15 Est GFR (MDRD) Non-Af > 60 (>60) 09/21/17 04:15 Glucose 90 mg/dL (65-99) 09/21/17 04:15 Calcium 7.9 mg/dL (8.5-10.1) L 09/21/17 04:15 Corrected Calcium TNP 09/19/17 04:28 Magnesium 1.4 mg/dL (1.7-2.9) L 09/21/17 04:15 Total Bilirubin 1.00 mg/dL (0.2-1.0) 09/19/17 04:28 AST 91 Units/L (15-37) H 09/19/17 04:28 ALT 40 Units/L (12-78) 09/19/17 04:28 Alkaline Phosphatase 66 Units/L (46-116) 09/19/17 04:28 Total Protein 7.7 g/dL (6.4-8.2) 09/19/17 04:28 Albumin 3.5 g/dL (3.4-5.0) 09/19/17 04:28 Globulin 4.2 g/dL (2.5-4.5) 09/19/17 04:28 Albumin/Globulin Ratio 0.8 Ratio (1.1-2.1) L 09/19/17 04:28 Specimen Type Clean catch urine 09/21/17 12:06 Urine Color Yellow (YELLOW) 09/21/17 12:06 Urine Appearance Clear (CLEAR) 09/21/17 12:06 Urine pH 8.0 (5.0 - 8.0) 09/21/17 12:06 Ur Specific Carbon 1.010 (1.000-1.030) 09/21/17 12:06 Urine Protein 1+ (NEGATIVE) 09/21/17 12:06 Urine Glucose (UA) Negative (NEGATIVE) 09/21/17 12:06 Urine Ketones Negative (NEGATIVE) 09/21/17 12:06 Urine Occult Blood Negative (NEGATIVE) 09/21/17 12:06 Urine Nitrite Negative (NEGATIVE) 09/21/17 12:06 Urine Bilirubin Negative (NEGATIVE) 09/21/17 12:06 Urine Urobilinogen 2+ (NORMAL) 09/21/17 12:06 Ur Leukocyte Esterase Negative (NEGATIVE) 09/21/17 12:06 Urine RBC None seen /HPF (NONE SEEN) 09/21/17 12:06 Urine WBC 0-2 /HPF (NONE SEEN) 09/21/17 12:06 Ur Squamous Epith Cells Rare /HPF (NEGATIVE) 09/21/17 12:06 Urine Bacteria Negative /HPF (NEGATIVE) 09/21/17 12:06 Ur Culture Indicated? No/not indicated 09/21/17 12:06 - Plan (1) Fracture, tibia and fibula, proximal Status: Acute Plan: ORTHO CONSULT, PAIN CONTROL. BP MONITORING, FOLLOWING POST OPERATIVE PAIN AND PT PER DR EDWARDS (2) Hypertension Status: Acute (3) Sprain of left knee Status: Acute Qualifiers: Encounter type: initial encounter Involved ligament of knee: unspecified ligament Qualified Code(s): S83.92XA - Sprain of unspecified site of left knee , initial encounter (4) Postoperative fever Status: Acute Plan: BLOOD CULTURES. UA, CXR, IV LEVAQUIN, REPEAT AM LABS. FEVER CONTROL, ENCOURAGE ORAL HYDRATION. PULMONARY TOILETING
--- NOTE | 2017-09-22 15:24 | OR.GENERIC ---
Post-Op Note Generic - Post-Op Note Operative Report: PREOPERATIVE DIAGNOSIS-right TIBIAL PLATEAU FRACTURE, LATERAL CONDYLE SPLIT DEPRESSION, CLOSED pOSTOPERATIVE DIAGNOSIS-Right TIBIAL PLATEAU FRACTURE, LATERAL CONDYLE SPLIT DEPRESSION, CLOSED, UNSTABLE, OSTEOPOROTIC pROCEDURE-right TIBIA OPEN REDUCTION INTERNAL FIXATION OF THE TIBIAL PLATEAU WITH PLATES AND SCREWS. DATE OF SURGERY- 09/19/2017 [facility] USED-SONAM,, 4 holed lateral condyle plate. HYDROCET indication-patient is a 46-year-old male who had a fall into a ditch and injury to his RIGHT knee. patient was unable to get up and walk on the RIGHT lower limb. He was seen in the emergency room. x-rays and computed tomography scan confirmed that it is a split depression fracture involving the lateral tibial condyle plateau of the RIGHT knee. Natural history and treatment discussions were done. Patient opted for surgery. He was taken through the procedure in detail. Pre-and post surgery instructions were given to him. Complications including but not limited to infection, neurovascular damage, foot drop, nonunion, malunion, symptomatic implant, compartment syndrome, knee arthritis and stiffness, need for further procedures in the future, need for implant removal where it feels the complications the complications which were discussed with him. He understood and verbalized to same. Preoperative-patient was seen in the preoperative holding area. The family, his girlfriend was updated about the procedure is going to get. Limb was marked. Consent was revisited. He was met with the esthetics instructor and he got a regional block. He got the appropriate antibiotic. Procedure-patient was brought to the operating room. Patient was placed supine on the operating table. A bump was placed under his RIGHT hip to internally rotate the lower limb.patient was placed under general anesthesia and successful endotracheal intubation was completed. Tourniquet was applied on the RIGHT lower limp but was not inflated. RIGHT limb was prepped and draped. Tourniquet was inflated. Proposed incision was marked. An hockey-stick incision parallel to the joint line and about 2 cm lateral to the tibial crest was marked. Incision deepened to expose the deep muscle layer.the deep fascia was incisedanterior to the tensor fascia meek.the proximal attachment was tibialis anterior was taken down from the tibia with the BOVIE. Care was taken to not extend the dissection posteriorly in order to avoid important structures. The proposed joint capsulotomy was marked with the help of a K wire which was confirmed with a C-arm. Sub-meniscal arthrotomy was completed on the lateral side. The sutures using Ethibond suture were passed through the meniscal root. The fracture site was exposed. Multiple fracture lines were seen extending and coronal planes. A reduction was achieved manually by giving traction and varus stress. Also direct manipulation of the fragments with a bone buggy driver as well as periosteal elevator was done to reduce the fracture fragments. These were held in place with a pointed reduction clamp. There was an articular depression noted in the anterior part of the fracture fragment. Through the fracture site and the articular fragment was elevated using a bone tamp. Direct visualization as well as C-arm images were obtained to confirm articular congruity. Multiple K wires were placed in the subchondral region across the fracture site holding the reduction in place. The void LEFT after the elevation of the depressed fragment was filled with HYDROCET. A 4-hole plate was chosen and was placed on the lateral condyle as wl as the lateral surface of the proximal tibia. It was provisionally fixed both proximally and distally with K wires. The placement was very satisfactory. This was confirmed with multiple images with the C-arm. 2 screws proximally and distally were fixed with locking mode. Multiple images throughout the procedure were obtained with C-arm to confirm appropriate placement of the screws. A deep drain was placed. the sutures were passed through the plate to anchor the meniscal root. Capsulotomy was closed after thorough irrigation. Joint was again visualized and no loose bodies were found. The IT band was closed. The remaining soft tissues closed with Vicryl 20. Skin was closed with declan. The fascia was not closed to prevent compartment syndrome. Sterile dressing was applied. He was placed in a knee immobilizer. postoperative-patient was woken up from the surgery. Patient was successfully extubated. Patient was stable, afebrile and he was shifted to the PACU. Postoperative neurovascular examination is intact. Postoperative x-rays shows appropriate placement of the plate, well reduced and well aligned knee joint and fracture. The family was updated. We will have him admitted for pain management as well as keeping an eye on his compartment syndrome.
== END 2017-09-21 12:50 | disposition home or self-care (01) ==
LOC: ER 16:59 → MED/SURG 19:06
PROVIDERS: ADMIT Internal Medicine; ATTEND Internal Medicine
PROC: 0QSG04Z Reposition Right Tibia with Internal Fixation Device, Open Approach (ICD-10-PCS; principal; 2017-09-19 10:00)
DX: S82.121A Displaced fracture of lateral condyle of right tibia, initial encounter for closed fracture (principal); S83.92XA Sprain of unspecified site of left knee, initial encounter; W18.39XA Other fall on same level, initial encounter; Y92.89 Other specified places as the place of occurrence of the external cause; R50.82 Postprocedural fever; E78.2 Mixed hyperlipidemia; I10 Essential (primary) hypertension; R26.89 Other abnormalities of gait and mobility
CPT/HCPCS: 36415; 71045; 73560; 73564; 76000; 80048; 80053; 81001; 83735; 85025; 87040; 93005; 93010; 94762; 96365; 96374; 96375; 99218; 99283; 99284; A4216; A4222; S0020; G0378; J0330; J0690; J1170; J1885; J1956; J2001; J2250; J2405; J2710; J3010; J3490; J7120

== ENCOUNTER 2017-09-26 07:21 | Emergency (ER) | payer OTHER ==
[2017-09-26 07:28] VITALS: BP 140/85; BMI 26.4
--- NOTE | 2017-09-26 08:17 | DR.EXTPAIN ---
HPI - Time seen Time seen: 08:05 - PCP Primary Care Physician: dr olivas - Complaint/Symptoms Chief Complaint Doctor Comments: Patient admits to having surgeryof the right knee on Tuesday of last week and dressing change on Tuesday 3 days ago;today noticed bleeding at the site. He denies fever or erythema. Chief Complaint:: pt stated he had right knee surgery last tuesday. the dressing was changed tuesday in dr francis office and yesterday he noticed some bleeding. - Source History Provided: Patient - Mode of arrival Mode of Arrival: Wheelchair - Timing Onset of Chief Complaint: 09/25/17 PMH - PMH Past Medical History: Yes Past Medical History: Dyslipidemia, Hypertension Past Surgical History: Yes Surgical History: Ortho Surgery - Family History History of Family Medical Conditions: Yes Family Medical History: Diabetes Mellitus, Hypertension - Social History Does patient currently use any type of tobacco product: Yes Have you used tobacco products in the last 12 months: Yes Type of Tobacco Use: Cigarettes How many years tobacco product used: 15 Does any household member use tobacco: Yes Alcohol Use: Occasionally Do you use any recreational Drugs:: No Lives With: Family Lives Where: Home - infectious screening In the last 2 months have you had wt loss of >10#?: NO Have you had fever, night sweats or hemotysis?: No Have you traveled outside the country in the last 6 months?: No Isolation: Standard ROS - Review of Systems Eyes: No Symptoms Reported ENTM: No Symptoms Reported Respiratoy: No Symptoms Reported Cardiovascular: No Symptoms Reported Gastrointestinal/Abdominal: No Symptoms Reported Genitourinary: No Symptoms Reported Neurological: No Symptoms Reported Musculoskeletal: No Symptoms Reported Integumentary: Wound (post surgery drainage of blood where declan non overlaping proximal lateral leg.) Endocrine: No Symptoms Reported Psychiatric: No Symptoms Reported All Other Systems: Reviewed and Negative PE - Vital Signs Vitals: Temperature 98.7 F Pulse Rate 110 Respiratory Rate 16 Blood Pressure [Right Arm] 133/89 Blood Pressure [Left Arm] 147/90 Blood Pressure 140/85 O2 Sat by Pulse Oximetry 99 - General Limitations: Physical Limitation (s/p surgery) General Appearance: Alert, In No Apparent Distress - Head Head Exam: Normal Inspection, Atraumatic - Eyes Eye exam: Normal Appearance, PERRL, EOMI - ENT ENT Exam: Normal Exam, Normal Oropharynx - Neck Neck Exam: Normal Inspection, Full ROM - Chest Chest Inspection: Normal Inspection - Respiratory Respiratory Exam: Normal Lung Sounds Bilat Respiratory Exam: Bilateral Clear to Auscultation - Cardiovascular Cardiovascular Exam: Regular Rate, Normal Rhythm - Abdominal Exam Abdominal Exam: Normal Inspection, Normal Bowel Sounds Abdominal Tenderness: negative: RUQ, RLQ, LUQ, LLQ, Epigastrium, Suprapubic, Diffuse, Mild, Moderate, Severe, Other - Extremities Extremities Exam: Normal Inspection, Full ROM - Upper Extremities Shoulder Exam: Normal Inspection, Full ROM Arm Exam: Normal Inspection, Full ROM Elbow Exam: Normal Inspection, Full ROM Forearm Exam: Normal Inspection Hand Exam: Normal Inspection, Full ROM Neuromotor Exam: Normal Exam Neurosensory Exam: Normal Exam, Radial Nerve Hand Tendon Exam: Flexor Digitorium Profundus (Location) Upper Ext. Vascular Exam: Capillary Refill (normal) - Lower Extremities Hip/Pelvis Exam: Normal Inspection Upper Leg Exam: Normal Inspection, Full ROM Knee Exam: Normal Inspection Lower Leg Exam: Full ROM Ankle Exam: Normal Inspection Foot/Toe Exam: Normal Inspection, Full ROM Neurovascular/Tendon Exam: Normal Capillary Refill Gait Exam: Unable to bear weight - Back Back Exam: Normal Inspection - Neurological Neurological Exam: Alert, Oriented X3, CN II-XII Intact - Psychiatric Psychiatric Exam: Normal Affect, Normal Mood - Skin Skin Exam: Warm, Dry, Intact, Other (Post surgical declan of right lower leg laterally proximal where minimal blood drainage from staple site) Type of Lesion: Rash, Abscess Distribution: Generalized Description: Size Course - Treatment Treatment: I discussed patietn with Dr Roberson and he advised to have patient follow up on next week as scheduled. - Diagnosis Discharge Problem: Post surgical drainage, s/p Right tibia repair - Discharge Plan Condition: Stable - Follow ups/Referrals Follow ups/Referrals: TORI ROBERSON [Primary Care Provider] - 3 days - Instructions
[2017-09-26] MEDS ORDERED: HYDROGEN PEROXIDE 3% ONE (08:45)
== END 2017-09-26 09:22 | disposition home or self-care (01) ==
LOC: ER 07:30
DX: T81.89XA Other complications of procedures, not elsewhere classified, initial encounter (principal); Z98.890 Other specified postprocedural states
CPT/HCPCS: 99282

== ENCOUNTER 2021-01-12 11:38 | Inpatient (IN) ==
[2021-01-12 11:49] VITALS: BMI 29.2
--- NOTE | 2021-01-12 13:50 | DR.EXTPAIN ---
HPI Time seen Time Seen by Provider: 01/12/21 13:42 PCP Primary Care Physician: [facility] HPI Comment HPI Comment: PATIENT WITH A HISTORY OF PERIPHERAL NEUROPATHY FOR YEARS, CHRONIC LOW BACK PAIN. STATES HIS NEUROTIN RAN OUT 1 YEAR AGO AND HAS NOT SEEN HIS [facility] IN 1 YEAR. DENIES TRAUMA OR INJURY. ELIEZER INITIALLY COMPLAINS OF NEEDLE AND PINS IN HIS FEET INITIALLY, NOW HAS ACHES IN BOTH SHINS AND CALFS. ON OCCASION HAS LOW BACK PAIN RADIATES INTO LEGS. ADMITS TO DRINKING ALCOHOL DAILY, BEER AND HARD LIQUOR. DENIES HISTORY OF ALCOHOL WITHDRAW. BEGIN USING A WALKER FOR GAIT ASSISTANCE 1 MONTH AGO. STATES LOWER LEGS PROGRESSIVELY WEAK. Complaint/Symptoms Chief Complaint Doctor Comments: NEUROPATHY IN BOTH LEGS Chief Complaint:: "I WAS HERE IN THE ER LAST WEEK FOR THE SAME THING AND IT'S JUST MY NERVES AND I CAN'T WALK." Self Treatment fo Chief Complaint: NONE Source History Provided: Patient Mode of arrival Mode of Arrival: Ambulatory Timing Onset of Chief Complaint: 01/12/20 Associated signs and symptoms Associated Signs and Symptoms: Weakness PMH PMH Past Medical History: Yes Past Medical History: Anxiety, Depression and Hypertension Past Surgical History: Yes Surgical History: Ortho Surgery Family History History of Family Medical Conditions: Yes Family Medical History: Hypertension Social History Does patient currently use any type of tobacco product: Yes Have you used tobacco products in the last 12 months: Yes Type of Tobacco Use: Cigarettes How many years tobacco product used: 30 Does any household member use tobacco: Yes Alcohol Use: Heavy Do you use any recreational Drugs:: No Lives With: Family Lives Where: Home Infectious screening In the last 2 months have you had wt loss of >10#?: NO Have you had fever, night sweats or hemotysis?: No Have you traveled outside the country in the last 6 months?: No Isolation: Standard ROS Review of Systems Constitutional: Weakness (LOWER EXTREMITY) Eyes: No Symptoms Reported ENTM: No Symptoms Reported Respiratoy: No Symptoms Reported Cardiovascular: No Symptoms Reported Gastrointestinal/Abdominal: No Symptoms Reported Genitourinary: No Symptoms Reported Neurological: Tingling (IN LOWER LEGS AND FEET) Musculoskeletal: Back Pain (ON OCCASION WITH RADIATION OF PAIN INTO LEGS) Integumentary: No Symptoms Reported Hematologic/Lymphatic: No Symptoms Reported Endocrine: No Symptoms Reported Psychiatric: No Symptoms Reported All Other Systems: Reviewed and Negative PE Vital Signs Vitals: Temperature 97.2 F Pulse Rate 72 Respiratory Rate 20 Blood Pressure [Right Arm] 133/89 Blood Pressure [Left Arm] 142/91 Blood Pressure 128/77 O2 Sat by Pulse Oximetry 97 General Limitations: No Limitations General Appearance: Alert (ARRIVES TO EMERGENCY VIA EMS) and In No Apparent Distress Head Head Exam: Normal Inspection and Atraumatic Eyes Eye exam: Normal Appearance, PERRL and EOMI ENT ENT Exam: Normal Exam and Normal Oropharynx Neck Neck Exam: Normal Inspection and Full ROM Chest Chest Inspection: Normal Inspection and Symmetric Chest Wall Rise Respiratory Respiratory Exam: Normal Lung Sounds Bilat Respiratory Exam: Bilateral: Clear to Auscultation Cardiovascular Cardiovascular Exam: Regular Rate and Normal Rhythm Abdominal Exam Abdominal Exam: Normal Inspection and Normal Bowel Sounds Extremities Extremities Exam: Normal Inspection and Full ROM Upper Extremities Shoulder Exam: Normal Inspection and Full ROM Neuromotor Exam: Normal Exam Neurosensory Exam: Normal Exam Lower Extremities Hip/Pelvis Exam: Normal Inspection and Full ROM (BILAT HIP WEAKNESS 3/5 HIP FLEXION) Lower Leg Exam: Normal Inspection Ankle Exam: Normal Inspection and Full ROM (ANKLE DORSIFLEXION 3/5) Foot/Toe Exam: Normal Inspection and Full ROM Back Back Exam: Normal Inspection, Full ROM and Tenderness (MINIMAL TO MODERATE LUMBAR PARASPINAL TENDERNESS L3-L5) Neurological Neurological Exam: Alert Psychiatric Psychiatric Exam: Normal Affect and Normal Mood MDM Differential Diagnosis Differential Diagnosis: Other (PERIPHERAL NEUROPATHY, LUMBAR SPINAL STENOSIS, HYPOKALEMIA) COURSE Treatment Treatment: IV NORMAL SALINE 200ML/HR, K-SHELBY 10MEQ IVPB OVER 1HOUR X 3 DOSES, REPEAT K-2.1, MAGNESIUM SULFATE 1GM IVPB Consultation Call Returned: 20:12 Consultation Comments: DISCUSSED FINDINGS WITH DR ZHU FOR OBSERVATION ROR Labs Reviewed Laboratory Results Reviewed?: Yes Result Diagrams: 01/12/21 14:16 01/12/21 19:45 Laboratory: WBC 6.8 X10^3/uL (3.6-10.0) 01/12/21 14:16 RBC 3.43 X10^6/uL (4.7-6.0) L 01/12/21 14:16 Hgb 10.8 g/dL (13.5-18.0) L 01/12/21 14:16 Hct 32.1 % (42.0-54.0) L 01/12/21 14:16 MCV 93.8 fL (80.0-100.0) 01/12/21 14:16 MCH 31.6 pg (27.0-34.0) 01/12/21 14:16 MCHC 33.7 g/dL (33.0-35.0) 01/12/21 14:16 RDW 15.8 % (11.6-16.5) 01/12/21 14:16 Plt Count 140 X10^3/uL (150.0-450.0) L 01/12/21 14:16 MPV 7.8 fL (7.4-11.0) 01/12/21 14:16 Neut % (Auto) 73.6 % (42.0-75.0) 01/12/21 14:16 Lymph % (Auto) 18.7 % (21.0-51.0) L 01/12/21 14:16 [place] % (Auto) 6.4 % (0.0-13.0) 01/12/21 14:16 Eos % (Auto) 0.6 % (0.9-2.9) L 01/12/21 14:16 Baso % (Auto) 0.7 % (0.2-1.0) 01/12/21 14:16 Neut # (Auto) 5.0 x10^3/uL (2.2-4.8) H 01/12/21 14:16 Lymph # (Auto) 1.3 X10^3/uL (1.3-2.9) 01/12/21 14:16 [place] # (Auto) 0.4 x10^3/uL (0.3-0.8) 01/12/21 14:16 Eos # (Auto) 0.0 x10^3/uL (0.0-0.2) 01/12/21 14:16 Baso # (Auto) 0.0 X10^3/uL (0.0-0.1) 01/12/21 14:16 Absolute Nucleated RBC 0.7 /100WBC 01/12/21 14:16 Sodium 140 mmol/L (136-145) 01/12/21 14:16 Corrected Sodium 140 mmol/L (136-145) 01/12/21 14:16 Potassium 2.1 mmol/L (3.5-5.1) L* 01/12/21 19:45 Chloride 93 mmol/L (98-107) L 01/12/21 14:16 Carbon Dioxide 18.5 mmol/L (21-32) L 01/12/21 14:16 BUN 1 mg/dL (7-18) L 01/12/21 14:16 Creatinine 0.85 mg/dL (0.70-1.30) 01/12/21 14:16 Est GFR (MDRD) Af Amer > 60 (>60) 01/12/21 14:16 Est GFR (MDRD) Non-Af > 60 (>60) 01/12/21 14:16 Glucose 115 mg/dL (65-99) H 01/12/21 14:16 Calcium 7.1 mg/dL (8.5-10.1) L 01/12/21 14:16 Magnesium 1.6 mg/dL (1.7-2.9) L 01/12/21 14:53 Total Bilirubin 3.00 mg/dL (0.2-1.0) H 01/12/21 14:53 Direct Bilirubin 2.00 mg/dL (0-0.2) H 01/12/21 14:53 Indirect Bilirubin 1.00 mg/dL (0.2-0.8) H 01/12/21 14:53 AST 224 Units/L (15-37) H 01/12/21 14:53 ALT 42 Units/L (12-78) 01/12/21 14:53 Alkaline Phosphatase 279 Units/L (46-116) H 01/12/21 14:53 Troponin I 0.02 ng/mL (0-1.5) 01/12/21 19:45 B-Natriuretic Peptide 146 pg/mL (0-79) H 01/12/21 21:55 Total Protein 7.6 g/dL (6.4-8.2) 01/12/21 14:53 Albumin 2.4 g/dL (3.4-5.0) L 01/12/21 14:53 Globulin 5.2 g/dL (2.5-4.5) H 01/12/21 14:53 Albumin/Globulin Ratio 0.5 Ratio (1.1-2.1) L 01/12/21 14:53 Ethyl Alcohol mg/dL 3 mg/dL (0-19.9) 01/12/21 21:28 SARS-CoV-2 (PCR) Negative (NEGATIVE) 01/12/21 20:10 Influenza Type A (PCR) Negative (NEGATIVE) 01/12/21 20:10 Influenza Type B (PCR) Negative (NEGATIVE) 01/12/21 20:10 RSV (PCR) Negative (NEGATIVE) 01/12/21 20:10 XRAY XRAY Interpreted by: Radiologist (LUMBAR SPINE CT SCAN CONSISTENT WITH NO ACUTE FRACTURE OR TRAUMATIC LISTHESIS, MILD TO MODERATE LUMBAR SPONDYLOSIS, SUSPECT MODERATE SPINAL CANAL STENOSIS AT L4-L5) X-ray Results: CHEST PORTABLE - NO ACUTE PROCESS EKG Rate: 119 Richards: Normal Rhythm: NSR (PROLONGED QT ) Hypertrophy: LAE Opioid Opioid Risk Tool Age (Cecil box if 16-45): No Total: 0 Total Score Risk Category: Low Risk Copyright: Derek ASCENCIO predicting aberrant behaviors Diagnosis Discharge Problem: Bilateral leg weakness, Acute hypokalemia
[2021-01-12 14:31] LABS: BASOPHILS % (AUTO) 0.7 % (0.2-1.0); EOSINOPHILS % (AUTO) 0.6 % (0.9-2.9); HEMATOCRIT 32.1 % (42.0-54.0); HEMOGLOBIN 10.8 g/dL (13.5-18.0); LYMPHOCYTES # (AUTO) 1.3 X10^3/uL (1.3-2.9); LYMPHOCYTES % (AUTO) 18.7 % (21.0-51.0); MEAN CORPUSCULAR HEMOGLOBIN 31.6 pg (27.0-34.0); MEAN CORPUSCULAR HGB CONC 33.7 g/dL (33.0-35.0); MEAN CORPUSCULAR VOLUME 93.8 fL (80.0-100.0); MEAN PLATELET VOLUME 7.8 fL (7.4-11.0); MONOCYTES # (AUTO) 0.4 x10^3/uL (0.3-0.8); MONOCYTES % (AUTO) 6.4 % (0.0-13.0); NEUTROPHILS % (AUTO) 73.6 % (42.0-75.0); PLATELET COUNT 140 X10^3/uL (150.0-450.0); RED BLOOD COUNT 3.43 X10^6/uL (4.7-6.0); RED CELL DISTRIBUTION WIDTH 15.8 % (11.6-16.5); WHITE BLOOD COUNT 6.8 X10^3/uL (3.6-10.0)
[2021-01-12 14:36] LABS: BLOOD UREA NITROGEN 1 mg/dL (7-18); CALCIUM 7.1 mg/dL (8.5-10.1); SODIUM 140 mmol/L (136-145); eGFR NON BLACK RACES > 60 (>60)
--- NOTE | 2021-01-12 14:41 | CT ---
HISTORYchronic paresthesia in legsSTUDYLUMBAR SPINE W/O CONCOMPARISONNone.TECHNIQUEMultiple axial images of the lumbar spine were obtained from the thoracolumbar junction to the sacrum without the administration of IV contrast. Sagittal and coronal reformats were performed and reviewed. Dose reduction techniques including Automated Exposure Control (AEC) and adjustment of mA and kV were utilized.FINDINGSThe patient is tilted within the scanner. Otherwise there is normal lumbar spine alignment. Disc heights appear preserved. There are marginal osteophytes at anterior L3 through L5 consistent with mild degenerative disc disease. No fracture or aggressive osseous lesion. Moderate multilevel facet arthropathy most notable at at right L2-3 and left L4-5. Suspect moderate spinal canal stenosis at L4-5. There is mild bony encroachment on the neural foramina at left L4-5. incidental note of severe hepatic steatosis.IMPRESSIONNo acute fracture or traumatic listhesis. [id number] lumbar spondylosis. Suspect moderate spinal canal stenosis at L4-5. Consider MRI for further evaluation of spinal canal and neural foraminal stenosis if clinically warranted.Electronically signed by: Jimmy Del Rosario (Jan 12, 2021 14:39:49)
[2021-01-12 15:07] LABS: CARBON DIOXIDE 18.5 mmol/L (21-32); CHLORIDE 93 mmol/L (98-107); COR NA(FOR HYPERGLY) 140 mmol/L (136-145); CREATININE 0.85 mg/dL (0.70-1.30)
[2021-01-12] MEDS ORDERED: K-DUR TAB 20 MEQ PO STA (15:11)
[2021-01-12] MEDS ORDERED: NS 1000 ML 1,000 ML IV STA (15:11)
[2021-01-12 15:33] LABS: ALBUMIN 2.4 g/dL (3.4-5.0); MAGNESIUM 1.6 mg/dL (1.7-2.9); TOTAL PROTEIN 7.6 g/dL (6.4-8.2)
[2021-01-12] MEDS ORDERED: K-RIDER 10 MEQ/NS 100 ML 10 MEQ/100 ML BAG IV ONE ×3 (15:53→18:19)
[2021-01-12] MEDS ORDERED: K-DUR TAB 20 MEQ PO ONE (15:53)
[2021-01-12] MEDS ORDERED: NS 1000 ML 1,000 ML ONE ×2 (15:53→20:39)
[2021-01-12] MEDS: K-RIDER 10 MEQ/NS 100 ML 10 MEQ/100 ML BAG IV ONE ×3 (16:13→18:19)
[2021-01-12] MEDS: MAGNESIUM SULFATE 1 GRAM/100 mL PREMIX 1 G/100 ML BAG IV STA (20:10)
[2021-01-12] MEDS ORDERED: NS 1000 ML 1,000 ML IV ONE (20:38)
[2021-01-12] MEDS ORDERED: MAGNESIUM SULFATE 1 GRAM/100 mL PREMIX 1 G/100 ML BAG IV ONE (21:06)
--- NOTE | 2021-01-12 21:44 | RAD ---
HISTORY"I WAS HERE IN THE ER LAST WEEK FOR THE SAME THING AND IT'S JUST MY NERVES AND I CAN'T WALK." POTASSIUM 2.1 (L)STUDYCHEST, 1 VIEWCOMPARISONNone availableTECHNIQUEChest radiographic imaging, AP portable projection, 1 imageFINDINGSNo cardiomegaly.No focal airspace disease.No pleural effusion.No pneumothorax.No acute osseous abnormality.Bridging osteophytes along the right margin of the mid to lower thoracic spine.IMPRESSIONNo imaging findings of acute cardiopulmonary disease.Electronically signed by: Bryce Sanchez (Jan 12, 2021 21:43:59)
[2021-01-12] MEDS ORDERED: MICRO K EXTEN CAP 10 MEQ PO PRN (23:05)
[2021-01-12] MEDS ORDERED: POTASSIUM CHL 40 MEQ/NS 0.45% 500 ML IV PRN (23:05)
[2021-01-12] MEDS ORDERED: K-DUR TAB 20 MEQ PO PRN (23:05)
[2021-01-12] MEDS ORDERED: POTASSIUM CHL 60 MEQ/NS 0.45% 500 ML IV PRN (23:05)
[2021-01-12] MEDS ORDERED: LIBRIUM PO PRN (23:23)
[2021-01-13] MEDS: NS 1000 ML 1,000 ML IV SCH ×2 (00:05→13:34)
[2021-01-13] MEDS: DESYREL PO SCH ×2 (00:15→21:15)
[2021-01-13] MEDS ORDERED: DESYREL PO ONE (00:23)
[2021-01-13] MEDS ORDERED: MAGNESIUM SULFATE 1 GRAM/100 mL PREMIX 1 G/100 ML BAG IV ONE (00:24)
[2021-01-13] MEDS ORDERED: LIBRIUM PO ONE (00:30)
[2021-01-13] MEDS ORDERED: MAGNESIUM SULFATE 1 GRAM/100 mL PREMIX 1 GM/100 ML BAG IV PRN (00:41)
[2021-01-13] MEDS: MAGNESIUM SULFATE 1 GRAM/100 mL PREMIX 1 G/100 ML BAG IV STA (01:22)
[2021-01-13 04:21] LABS: BASOPHILS % (AUTO) 0.7 % (0.2-1.0); EOSINOPHILS % (AUTO) 0.3 % (0.9-2.9); HEMATOCRIT 28.8 % (42.0-54.0); HEMOGLOBIN 9.7 g/dL (13.5-18.0); LYMPHOCYTES % (AUTO) 13.5 % (21.0-51.0); MEAN CORPUSCULAR HGB CONC 33.7 g/dL (33.0-35.0); MEAN PLATELET VOLUME 8.1 fL (7.4-11.0); MONOCYTES # (AUTO) 0.4 x10^3/uL (0.3-0.8); MONOCYTES % (AUTO) 5.4 % (0.0-13.0); NEUTROPHILS % (AUTO) 80.1 % (42.0-75.0); PLATELET COUNT 130 X10^3/uL (150.0-450.0); RED BLOOD COUNT 3.03 X10^6/uL (4.7-6.0); RED CELL DISTRIBUTION WIDTH 15.8 % (11.6-16.5); WHITE BLOOD COUNT 7.5 X10^3/uL (3.6-10.0)
[2021-01-13 04:29] LABS: ALBUMIN 2.3 g/dL (3.4-5.0); ALKALINE PHOSPHATASE 264 Units/L (46-116); ASPARTATE AMINO TRANSFERASE 221 Units/L (15-37); BLOOD UREA NITROGEN 1 mg/dL (7-18); CALCIUM 6.8 mg/dL (8.5-10.1); CARBON DIOXIDE 18.7 mmol/L (21-32); CHLORIDE 96 mmol/L (98-107); COR CA(FOR HYPOALB) 8.2 mg/dL (8.5-10.1); COR NA(FOR HYPERGLY) 143 mmol/L (136-145); CREATININE 1.22 mg/dL (0.70-1.30); SODIUM 143 mmol/L (136-145); TOTAL PROTEIN 7.2 g/dL (6.4-8.2); eGFR NON BLACK RACES > 60 (>60)
[2021-01-13] MEDS: KLOR-CON PO PRN ×2 (05:05→05:56)
[2021-01-13 05:10] LABS: ALANINE AMINOTRANSFERASE 40 Units/L (12-78)
[2021-01-13] MEDS ORDERED: LIBRIUM PO PRN (08:00)
[2021-01-13] MEDS: LIBRIUM PO PRN ×2 (08:30→21:16)
[2021-01-13] MEDS ORDERED: LOPRESSOR INJ 5 MG AMP IVP STA (08:39)
[2021-01-13] MEDS ORDERED: TOPROL XL PO SCH (09:00)
[2021-01-13] MEDS: NEURONTIN TAB 600 MG PO SCH (09:06)
[2021-01-13] MEDS: NORVASC TAB 5 MG PO SCH (09:06)
[2021-01-13] MEDS: THIAMINE HCL INJ IVP SCH ×2 (09:07→21:16)
[2021-01-13] MEDS: K-RIDER 10 MEQ/NS 100 ML 10 MEQ/100 ML BAG IV PRN ×2 (09:30→15:00)
--- NOTE | 2021-01-13 09:37 | RAD ---
HISTORYSOBSTUDYCHEST x-ray, 1 VIEWCOMPARISONX-ray 01/12/2021FINDINGSVolumes are low. Bibasilar atelectasis persists. More vague infiltrate is seen in the right midlung that could be pneumonia. No pneumothorax or pleural effusion is seen. Heart is likely normal in size.IMPRESSIONWorsening right middle lobe infiltrate is concerning for possible pneumonia. Continued x-ray follow up to document resolution is recommended.Other areas of linear atelectasis are seen in the lower lungs.Electronically signed by: Ezequiel Rain (Jan 13, 2021 09:34:32)
[2021-01-13] MEDS: NS 1000 ML 1,000 ML with MAGNESIUM SULFATE 50% INJ VIAL 1 G, MVI INJ (ADULT) 10 ML IV SCH ×3 (10:01)
[2021-01-14] MEDS ORDERED: FOLIC ACID TAB 1 MG PO SCH (09:00)
[2021-01-14] MEDS ORDERED: K-DUR TAB 20 MEQ PO SCH (09:00)
[2021-01-14] MEDS ORDERED: TOPROL XL PO SCH (09:00)
[2021-01-14] MEDS: NEURONTIN TAB 600 MG PO SCH (09:09)
[2021-01-14] MEDS: NORVASC TAB 5 MG PO SCH (09:09)
[2021-01-14] MEDS: THIAMINE HCL INJ IVP SCH ×2 (09:10→21:57)
[2021-01-14] MEDS: NS 1000 ML 1,000 ML IV SCH ×2 (09:54→17:43)
[2021-01-14] MEDS: NS 1000 ML 1,000 ML with MAGNESIUM SULFATE 50% INJ VIAL 1 G, MVI INJ (ADULT) 10 ML IV SCH ×6 (09:55→13:37)
[2021-01-14] MEDS: LIBRIUM PO PRN (09:59)
[2021-01-14 10:15] LABS: ALANINE AMINOTRANSFERASE 48 Units/L (12-78); ALBUMIN 2.6 g/dL (3.4-5.0); ALKALINE PHOSPHATASE 249 Units/L (46-116); ASPARTATE AMINO TRANSFERASE 238 Units/L (15-37); BLOOD UREA NITROGEN 1 mg/dL (7-18); CALCIUM 7.1 mg/dL (8.5-10.1); CARBON DIOXIDE 35.6 mmol/L (21-32); CHLORIDE 104 mmol/L (98-107); COR CA(FOR HYPOALB) 8.2 mg/dL (8.5-10.1); COR NA(FOR HYPERGLY) 145 mmol/L (136-145); CREATININE 0.67 mg/dL (0.70-1.30); MAGNESIUM 2.3 mg/dL (1.7-2.9); SODIUM 145 mmol/L (136-145); TOTAL PROTEIN 7.9 g/dL (6.4-8.2); eGFR NON BLACK RACES > 60 (>60)
[2021-01-14 10:18] LABS: BASOPHILS % (AUTO) 0.5 % (0.2-1.0); EOSINOPHILS % (AUTO) 0.5 % (0.9-2.9); HEMATOCRIT 29.7 % (42.0-54.0); HEMOGLOBIN 9.9 g/dL (13.5-18.0); LYMPHOCYTES # (AUTO) 0.6 X10^3/uL (1.3-2.9); MEAN CORPUSCULAR HEMOGLOBIN 31.4 pg (27.0-34.0); MEAN CORPUSCULAR HGB CONC 33.2 g/dL (33.0-35.0); MEAN CORPUSCULAR VOLUME 94.5 fL (80.0-100.0); MEAN PLATELET VOLUME 8.5 fL (7.4-11.0); MONOCYTES # (AUTO) 0.2 x10^3/uL (0.3-0.8); MONOCYTES % (AUTO) 3.5 % (0.0-13.0); NEUTROPHILS # (AUTO) 5.8 x10^3/uL (2.2-4.8); NEUTROPHILS % (AUTO) 86.5 % (42.0-75.0); PLATELET COUNT 115 X10^3/uL (150.0-450.0); RED BLOOD COUNT 3.14 X10^6/uL (4.7-6.0); RED CELL DISTRIBUTION WIDTH 16.2 % (11.6-16.5); WHITE BLOOD COUNT 6.7 X10^3/uL (3.6-10.0)
[2021-01-14] MEDS: POTASSIUM CHLORIDE LIQ 20 MEQ UDC PO PRN (11:21)
[2021-01-14] MEDS ORDERED: VERSED IV PREMIX 100 MG/100 ML IV.SOLN IV ONE (14:19)
--- NOTE | 2021-01-14 14:39 | RAD ---
HISTORYUNRESPONSIVE, ET TUBE PLACEMENT HX HTN. SX ORTHOSTUDYCHEST, 1 VIEWCOMPARISONPortable chest January 13, 2021.FINDINGSThe trachea is midline. An ET tube is been placed in is in good position approximately 4.5 cm above the [place]. The cardiac silhouette is unremarkable. Worsening infiltrates are seen in both the right upper and lower lung field and there is a small amount of fluid along the fissure on the right. Increased interstitial markings are seen perihilar on the left.. The bony thorax is unremarkable.IMPRESSIONET tube in place. Worsening interstitial infiltrates bilaterally right greater than left compared to yesterdays study.Electronically signed by: TROY SINGH (Jan 14, 2021 14:38:33)
--- NOTE | 2021-01-14 14:51 | RAD ---
HISTORYNG tube placement, unresponsiveSTUDYKUBCOMPARISONNoneFINDINGSThere is a nasogastric tube present with its tip and side h ole well within the stomach. The abdominal gas pattern is nonspecific and nonobstructive. No abnormal masses or abnormal calcifications are identified. There is a question of hepatomegaly. This should b e clinically correlated. Regional skeleton is intact.IMPRESSIONNG tube tip and side hole within the s tomachNonspecific nonobstructive bowel gas patternQuestion hepatomegaly. Correlation with physical ex amination is recommended.Electronically signed by: FRANCISCO ROBLES (Jan 14, 2021 14:49:23)
[2021-01-14 14:53] LABS: MAGNESIUM 2.5 mg/dL (1.7-2.9)
[2021-01-14 15:13] LABS: ABG BASE EXCESS 7.3 mmol/L (-2.0-2.0)
[2021-01-14 15:14] LABS: ABG ALLEN TEST POS; ABG HCO3 32.6 mmol/L (22-26)
[2021-01-14] MEDS: VERSED IV PREMIX 100 MG/100 ML IV.SOLN IV PRN ×2 (15:15→22:39)
[2021-01-14] MEDS: DIPRIVAN PREMIX 1 GRAM IV 1,000 MG/100 ML VIAL IV PRN (15:16)
[2021-01-14] MEDS ORDERED: LACRI-LUBE S.O.P. AFFEYE SCH (16:00)
[2021-01-14 18:18] LABS: BILIRUBIN,URINE 2+ (NEGATIVE); BLOOD/HEMOGLOBIN,URINE 4+ (NEGATIVE); GLUCOSE, URINE NEGATIVE (NEGATIVE); KETONES,URINE NEGATIVE (NEGATIVE); LEUKOCYTE ESTERASE ,URINE NEGATIVE (NEGATIVE); NITRITES,URINE NEGATIVE (NEGATIVE); PROTEIN,URINE 3+ (NEGATIVE); UROBILINOGEN,URINE 3+ (NORMAL)
[2021-01-14 18:28] LABS: APPEARANCE,URINE HAZY (CLEAR); COLOR,URINE DARK YELLOW (YELLOW)
[2021-01-14 18:29] LABS: AMORPHOUS SEDIMENT,UR TRACE /HPF (NEGATIVE); BACTERIA,URINE TRACE /HPF (NEGATIVE); HYALINE CASTS, URINE FEW /LPF (NEGATIVE); MUCUS,URINE MODERATE /HPF (NEGATIVE); SQUAMOUS EPITHELIAL CELL,UR FEW /HPF (NEGATIVE)
[2021-01-15] MEDS: DIPRIVAN PREMIX 1 GRAM IV 1,000 MG/100 ML VIAL IV PRN ×4 (01:29→20:50)
[2021-01-15] MEDS: ARTIFICIAL TEARS DROPS AFFEYE PRN ×2 (04:15→21:00)
[2021-01-15 04:22] LABS: ABG BASE EXCESS 12.1 mmol/L (-2.0-2.0)
[2021-01-15 04:23] LABS: ABG ALLEN TEST POS; ABG HCO3 35.9 mmol/L (22-26)
--- NOTE | 2021-01-15 06:49 | RAD ---
HISTORYVENTILATOR DEPENDENCESTUDYCHEST, 1 [id number]/04/2021.TECHNIQUEAP view of the chestFINDINGSET tube in good position. NG tube courses below the visualized field of view. Low lung volumes with elevated right hemidiaphragm. Improved aeration in the right upper lobe. Mild diffuse interstitial opacities remain. No discernible pleural effusion or pneumothorax.IMPRESSIONThere is likely interval improvement in bilateral pulmonary opacities, although low lung volumes limit evaluation.Electronically signed by: Jimmy Del Rosario (Jan 15, 2021 06:47:45)
[2021-01-15 06:53] LABS: BASOPHILS % (AUTO) 0.5 % (0.2-1.0); EOSINOPHILS # (AUTO) 0.1 x10^3/uL (0.0-0.2); EOSINOPHILS % (AUTO) 1.2 % (0.9-2.9); HEMATOCRIT 25.9 % (42.0-54.0); HEMOGLOBIN 8.8 g/dL (13.5-18.0); LYMPHOCYTES # (AUTO) 0.9 X10^3/uL (1.3-2.9); LYMPHOCYTES % (AUTO) 11.3 % (21.0-51.0); MEAN CORPUSCULAR HEMOGLOBIN 31.9 pg (27.0-34.0); MEAN CORPUSCULAR HGB CONC 33.7 g/dL (33.0-35.0); MEAN CORPUSCULAR VOLUME 94.6 fL (80.0-100.0); MEAN PLATELET VOLUME 9.1 fL (7.4-11.0); MONOCYTES # (AUTO) 0.5 x10^3/uL (0.3-0.8); MONOCYTES % (AUTO) 5.7 % (0.0-13.0); NEUTROPHILS # (AUTO) 6.5 x10^3/uL (2.2-4.8); NEUTROPHILS % (AUTO) 81.3 % (42.0-75.0); PLATELET COUNT 124 X10^3/uL (150.0-450.0); RED BLOOD COUNT 2.74 X10^6/uL (4.7-6.0); RED CELL DISTRIBUTION WIDTH 16.7 % (11.6-16.5)
[2021-01-15 07:04] LABS: ALANINE AMINOTRANSFERASE 50 Units/L (12-78); ALBUMIN 2.2 g/dL (3.4-5.0); ALKALINE PHOSPHATASE 215 Units/L (46-116); ASPARTATE AMINO TRANSFERASE 244 Units/L (15-37); BLOOD UREA NITROGEN 2 mg/dL (7-18); CALCIUM 7.1 mg/dL (8.5-10.1); CARBON DIOXIDE 30.7 mmol/L (21-32); CHLORIDE 105 mmol/L (98-107); COR CA(FOR HYPOALB) 8.5 mg/dL (8.5-10.1); CREATININE 0.89 mg/dL (0.70-1.30); MAGNESIUM 2.1 mg/dL (1.7-2.9); SODIUM 146 mmol/L (136-145); TOTAL PROTEIN 6.9 g/dL (6.4-8.2); eGFR NON BLACK RACES > 60 (>60)
[2021-01-15] MEDS: VERSED IV PREMIX 100 MG/100 ML IV.SOLN IV PRN ×2 (07:50→19:24)
[2021-01-15] MEDS: NS 1000 ML 1,000 ML IV SCH (09:36)
[2021-01-15] MEDS: NS 1000 ML 1,000 ML with MAGNESIUM SULFATE 50% INJ VIAL 1 G, MVI INJ (ADULT) 10 ML IV SCH ×3 (09:36)
[2021-01-15] MEDS: THIAMINE HCL INJ IVP SCH ×2 (09:37→20:53)
[2021-01-15] MEDS: POTASSIUM CHLORIDE LIQ 20 MEQ UDC PO PRN (09:37)
[2021-01-15] MEDS ORDERED: MVI IV SCH ×4 (13:00)
[2021-01-15] MEDS ORDERED: NS IV SCH ×4 (13:00)
[2021-01-15] MEDS ORDERED: MAGNESIUM SULFATE IV SCH ×4 (13:00)
[2021-01-15] MEDS ORDERED: [UNRECOGNIZED DRUG - OTHER] IV SCH ×4 (13:00)
[2021-01-15] MEDS: APRESOLINE INJ 20 MG VIAL IVP PRN (20:51)
[2021-01-16] MEDS: NS 1000 ML 1,000 ML IV SCH ×2 (01:19→10:18)
[2021-01-16 05:39] LABS: ABG BASE EXCESS 9.2 mmol/L (-2.0-2.0)
[2021-01-16 05:40] LABS: ABG ALLEN TEST POS; ABG HCO3 32.6 mmol/L (22-26)
[2021-01-16] MEDS: DIPRIVAN PREMIX 1 GRAM IV 1,000 MG/100 ML VIAL IV PRN (06:12)
--- NOTE | 2021-01-16 06:54 | RAD ---
HISTORYFollow up respiratory failureSTUDYChest AP [id number]/05/2021FINDINGSPatient is rotated to the right. There is an endotracheal tube in good position. There is a nasogastric tube coursing below the left hemidiaphragm. Its tip is not vis ible. Hypo inflation accentuates the heart size. It is likely within normal limits. Haziness in the r ight lung base is likely due to developing right pleural effusion. The right lung is free of acute in filtrates. The left lung is now clear. No left pleural effusion is identified. Bony thorax is unremar kable.IMPRESSIONPersistent hypo inflationHaziness in the right lung base likely due to right pleural effusionElectronically signed by: FRANCISCO ROBLES (Jan 16, 2021 06:51:48)
[2021-01-16 07:47] LABS: HEPATITIS B SURFACE ANTIGEN Negative (Negative)
[2021-01-16 08:06] LABS: BASOPHILS % (AUTO) 0.5 % (0.2-1.0); EOSINOPHILS # (AUTO) 0.1 x10^3/uL (0.0-0.2); EOSINOPHILS % (AUTO) 1.1 % (0.9-2.9); HEMATOCRIT 28.4 % (42.0-54.0); HEMOGLOBIN 9.4 g/dL (13.5-18.0); LYMPHOCYTES % (AUTO) 11.5 % (21.0-51.0); MEAN CORPUSCULAR HEMOGLOBIN 31.5 pg (27.0-34.0); MEAN CORPUSCULAR HGB CONC 33.2 g/dL (33.0-35.0); MEAN CORPUSCULAR VOLUME 94.7 fL (80.0-100.0); MEAN PLATELET VOLUME 8.3 fL (7.4-11.0); MONOCYTES # (AUTO) 0.5 x10^3/uL (0.3-0.8); MONOCYTES % (AUTO) 6.4 % (0.0-13.0); NEUTROPHILS # (AUTO) 6.8 x10^3/uL (2.2-4.8); NEUTROPHILS % (AUTO) 80.5 % (42.0-75.0); PLATELET COUNT 140 X10^3/uL (150.0-450.0); RED CELL DISTRIBUTION WIDTH 16.7 % (11.6-16.5); WHITE BLOOD COUNT 8.5 X10^3/uL (3.6-10.0)
[2021-01-16] MEDS ORDERED: POTASSIUM CHL 60 MEQ/NS 0.45% 500 ML IV PRN (08:19)
[2021-01-16] MEDS ORDERED: POTASSIUM CHL 40 MEQ/NS 0.45% 500 ML IV PRN (08:19)
[2021-01-16] MEDS ORDERED: KLOR-CON PO PRN (08:19)
[2021-01-16] MEDS ORDERED: MICRO K EXTEN CAP 10 MEQ PO PRN (08:19)
[2021-01-16] MEDS ORDERED: K-DUR TAB 20 MEQ PO PRN (08:19)
[2021-01-16] MEDS ORDERED: K-RIDER 10 MEQ/NS 100 ML 10 MEQ/100 ML BAG IV PRN (08:19)
[2021-01-16 08:20] LABS: ALANINE AMINOTRANSFERASE 52 Units/L (12-78); ALKALINE PHOSPHATASE 214 Units/L (46-116); ASPARTATE AMINO TRANSFERASE 212 Units/L (15-37); BLOOD UREA NITROGEN 3 mg/dL (7-18); CALCIUM 7.5 mg/dL (8.5-10.1); CARBON DIOXIDE 31.6 mmol/L (21-32); CHLORIDE 107 mmol/L (98-107); COR CA(FOR HYPOALB) 9.1 mg/dL (8.5-10.1); CREATININE 0.89 mg/dL (0.70-1.30); SODIUM 148 mmol/L (136-145); TOTAL PROTEIN 7.1 g/dL (6.4-8.2); eGFR NON BLACK RACES > 60 (>60)
[2021-01-16] MEDS: THIAMINE HCL INJ IVP SCH ×2 (09:13→20:47)
[2021-01-16] MEDS: LOPRESSOR INJ 5 MG AMP IVP PRN ×2 (09:16→15:55)
[2021-01-16] MEDS: POTASSIUM CHLORIDE LIQ 20 MEQ UDC PO PRN ×2 (09:17→15:55)
[2021-01-16] MEDS ORDERED: VERSED IV PRN ×2 (09:51)
[2021-01-16] MEDS ORDERED: NS IV PRN ×2 (09:51)
[2021-01-16] MEDS ORDERED: VERSED IV PREMIX 100 MG/100 ML IV.SOLN IV ONE (09:53)
[2021-01-16] MEDS ORDERED: VERSED IV PREMIX 100 MG/100 ML IV.SOLN IV PRN (09:59)
[2021-01-16] MEDS: APRESOLINE INJ 20 MG VIAL IVP PRN (10:26)
[2021-01-16] MEDS: MAGNESIUM SULFATE IV SCH ×4 (15:46)
[2021-01-16] MEDS: [UNRECOGNIZED DRUG - OTHER] IV SCH ×4 (15:46)
[2021-01-16] MEDS: NS IV SCH ×4 (15:46)
[2021-01-17] MEDS: LOPRESSOR INJ 5 MG AMP IVP PRN ×2 (00:24→06:25)
[2021-01-17] MEDS: ARTIFICIAL TEARS DROPS AFFEYE PRN (00:24)
[2021-01-17] MEDS: NS 1000 ML 1,000 ML IV SCH ×2 (03:57)
[2021-01-17 04:34] LABS: ABG BASE EXCESS 8.8 mmol/L (-2.0-2.0)
[2021-01-17 04:35] LABS: ABG ALLEN TEST POS; ABG HCO3 32.7 mmol/L (22-26)
[2021-01-17] MEDS: CLEOCIN 600 MG IV PREMIX 600 MG/50 ML BAG IV SCH ×3 (05:26→18:00)
--- NOTE | 2021-01-17 05:40 | RAD ---
PROCEDURE: Chest X-ray 1 View .HISTORY: Dyspnea.TECHNIQUE: AP view .COMPARISON: 01/16/2021.TECHNICAL QUALITY: Satisfactory .FINDINGS:Interval extubation of the patient. NG tube tip projected over the body of the stomach.Unchanged cardio mediastinal silhouette.Normal central vascularity.Bilateral consolidation both lung thurman slightly increased compared to previous study with no pleural fluid or pneumothorax.IMPRESSION:Mildly increased bilateral pneumonia.Electronically signed by: Justin Scott (Jan 17, 2021 05:38:07)
[2021-01-17 06:27] LABS: BASOPHILS % (AUTO) 0.4 % (0.2-1.0); EOSINOPHILS % (AUTO) 0.4 % (0.9-2.9); HEMATOCRIT 26.5 % (42.0-54.0); HEMOGLOBIN 8.7 g/dL (13.5-18.0); LYMPHOCYTES # (AUTO) 1.3 X10^3/uL (1.3-2.9); MEAN CORPUSCULAR HEMOGLOBIN 31.5 pg (27.0-34.0); MEAN CORPUSCULAR HGB CONC 32.9 g/dL (33.0-35.0); MEAN CORPUSCULAR VOLUME 95.6 fL (80.0-100.0); MONOCYTES # (AUTO) 1.1 x10^3/uL (0.3-0.8); MONOCYTES % (AUTO) 13.5 % (0.0-13.0); NEUTROPHILS # (AUTO) 5.5 x10^3/uL (2.2-4.8); NEUTROPHILS % (AUTO) 69.7 % (42.0-75.0); PLATELET COUNT 173 X10^3/uL (150.0-450.0); RED BLOOD COUNT 2.78 X10^6/uL (4.7-6.0); RED CELL DISTRIBUTION WIDTH 17.3 % (11.6-16.5); WHITE BLOOD COUNT 7.9 X10^3/uL (3.6-10.0)
[2021-01-17 06:52] LABS: ALANINE AMINOTRANSFERASE 50 Units/L (12-78); ALBUMIN 1.8 g/dL (3.4-5.0); ALKALINE PHOSPHATASE 225 Units/L (46-116); ASPARTATE AMINO TRANSFERASE 164 Units/L (15-37); BLOOD UREA NITROGEN 6 mg/dL (7-18); CARBON DIOXIDE 32.1 mmol/L (21-32); CHLORIDE 112 mmol/L (98-107); COR CA(FOR HYPOALB) 9.8 mg/dL (8.5-10.1); CREATININE 0.99 mg/dL (0.70-1.30); TOTAL PROTEIN 7.1 g/dL (6.4-8.2); eGFR NON BLACK RACES > 60 (>60)
[2021-01-17 06:55] LABS: SODIUM 151 mmol/L (136-145)
[2021-01-17] MEDS ORDERED: LIBRIUM PO PRN (07:12)
[2021-01-17] MEDS ORDERED: TYLENOL ELIXIR 325 MG UDC ONE (08:27)
[2021-01-17] MEDS ORDERED: TYLENOL ELIXIR 325 MG UDC PO PRN (08:31)
[2021-01-17] MEDS: NS 1/2 + KCL 20 MEQ/L 1,000 ML IV SCH ×2 (08:34→15:31)
[2021-01-17] MEDS ORDERED: COREG TAB 25 MG PO SCH (09:00)
[2021-01-17] MEDS: THIAMINE HCL INJ IVP SCH (09:21)
[2021-01-17] MEDS ORDERED: LR 1000 ML IV 1,000 ML IV ONE ×2 (10:00→11:18)
--- NOTE | 2021-01-17 11:47 | RAD ---
HISTORYSOB, HYPOKALEMIA, LOWER EXTREMITY WEAKNESS Relevant Clinical InformationSTUDYCHEST, 1 [id number]/07/2021FINDINGSThe trachea is midline. NG tube tip in distal stomach. The cardiac silhouette is unremarkable. Bilateral pulmonary infiltrates/consolidation unchanged. No pneumothorax the bony thorax is unremarkable.IMPRESSIONBilateral pneumonia, unchanged from previous 1Electronically signed by: Luis Alfonso (Jan 17, 2021 11:45:38)
[2021-01-17] MEDS: VALIUM INJ IVP PRN ×2 (11:59→18:00)
[2021-01-17] MEDS: XOPENEX 1.25 MG/3 ML NEBULE NEB SCH ×2 (13:30→17:55)
[2021-01-17] MEDS: [UNRECOGNIZED DRUG - OTHER] IV SCH ×8 (14:57→15:31)
[2021-01-17] MEDS: MAGNESIUM SULFATE IV SCH ×8 (14:57→15:31)
[2021-01-17] MEDS: NS IV SCH ×8 (14:57→15:31)
[2021-01-17] MEDS ORDERED: NS 250 ML IV 250 ML IV ONE (16:46)
[2021-01-17] MEDS ORDERED: ATROPINE SULFATE ABBOJECT IVP ONE ×2 (21:06→21:09)
[2021-01-17] MEDS ORDERED: ADRENALINE CHL INJ (ABBOJECT) IVP ONE ×7 (21:07→21:36)
[2021-01-17] MEDS ORDERED: CORDARONE INJ 150 MG VIAL IVP ONE (21:18)
[2021-01-18 00:14] VITALS: BP 88/50
== END 2021-01-17 21:37 | disposition home or self-care (01) | DRG 640 ==
LOC: ER 11:38 → MED/SURG 22:59
PROVIDERS: ADMIT Obstetrics & Gynecology Obstetrics; ATTEND Obstetrics & Gynecology Obstetrics
DX: I10 Essential (primary) hypertension; E51.12 Wet beriberi; R26.89 Other abnormalities of gait and mobility; R53.1 Weakness; I46.9 Cardiac arrest, cause unspecified; Z20.822 Contact with and (suspected) exposure to COVID-19; F10.10 Alcohol abuse, uncomplicated; G62.9 Polyneuropathy, unspecified; E87.6 Hypokalemia